=== PATIENT | female | born 1985 | race Caucasian/White ===

== ENCOUNTER 2022-04-11 12:56 | Outpatient (CLI) | payer MEDICAID, SELFPAY ==
--- NOTE | 2022-04-11 13:00 | CRLHL7_ITS ---
For Patients: As a result of the Century Cures Act, medical imaging exams and procedure reports are released immediately into your electronic medical record. You may view this report before your referring provider. If you have questions, please contact your health care provider. INDICATION: COVID DURING TECHNIQUE: Real time eldridge scale imaging of the fetus was performed. COMPARISON: 03/12/2022 FINDINGS: Sonographic imaging demonstrates a single living intrauterine gestation. Fetus demonstrates a regular cardiac rate of 136 beats per minute. Fetus has a vertex position. The placenta lies anteriorly without evidence of placenta previa. Amniotic fluid volume appears normal and there is a single deepest pocket of 7.4 cm. The estimated weight is 2115gm which lies at the 61st %. On the prior OB ultrasound dated 03/12/2022 the estimated weight was at the 91st percentile. BPD 93rd percentile. HC 60th percentile. AC 76th percentile. FL 20th percentile. The fetus was active and demonstrated normal breathing movements. There was normal flexion and extension of the trunk and extremities. IMPRESSION: Normal biophysical profile score 8/8. Sonographic gestational age 33 weeks 3 days and sonographic due date 05/27/2022. Sonographic age 1 week ahead of the clinical age. Estimated weight 61st percentile. Abdominal circumference 76th percentile. Dictated by Vern Keenan MD @ 04/11/2022 2:10:54 PM (Electronically Signed)
== END 2022-04-11 12:57 | disposition home or self-care (01) ==
LOC: US 12:57
PROVIDERS: Visit Provider Advanced Practice Midwife
DX: O98.513 Other viral diseases complicating pregnancy, third trimester (principal); U07.1 COVID-19; Z3A.33 33 weeks gestation of pregnancy
CPT/HCPCS: 76816; 76819

== ENCOUNTER 2023-07-31 12:47 | Outpatient (CLI) | payer MEDICAID, SELFPAY ==
--- NOTE | 2023-07-31 13:00 | CRLHL7_ITS ---
For Patients: As a result of the Cures Act, medical imaging exams and procedure reports are released immediately into your electronic medical record. You may view this report before your referring provider. If you have questions, please contact your health care provider. INDICATION: First trimester scan, establish dates. COMPARISON: None. TECHNIQUE: Real-time eldridge-scale imaging of the pelvis was performed. FINDINGS: Sonographic imaging demonstrates a single living intrauterine gestation. The embryo demonstrates a regular cardiac rate measuring 154 beats per minute. The embryo`s crown-rump length measurement of 6.7 cm corresponds to a gestational age of 13 weeks 0 days with a sonographic due date of 02/05/2024. There is a normal-appearing yolk sac. There are no gross abnormalities noted within the embryo at this early state of development. The gestational sac has a normal appearance. There is a lower uterine segment perigestational hemorrhage measuring 1.2 x 1.5 x 3.0 cm. The amount of fluid within the sac appears appropriate for gestational age. The cervix is closed. The myometrium appears normal. The ovaries are of normal size. Corpus luteal cyst left ovary. There are no suspicious fluid collections noted in the cul-de-sac. IMPRESSION: Single living intrauterine with sonographic gestational age 13 weeks 0 days and sonographic due date 02/05/2024. Lower uterine segment subchorionic hemorrhage measuring 1.2 x 1.5 x 3.0 cm. Dictated by Vern Keenan MD @ 08/01/2023 3:59:39 PM (Electronically Signed)
== END 2023-07-31 12:48 | disposition home or self-care (01) ==
LOC: US 12:48
PROVIDERS: Visit Provider Advanced Practice Midwife
DX: Z34.91 Encounter for supervision of normal pregnancy, unspecified, first trimester (principal); O20.9 Hemorrhage in early pregnancy, unspecified; Z3A.13 13 weeks gestation of pregnancy
CPT/HCPCS: 76801; 84443; 86703; 86706; 86803; 86850; 86900; 86901; 87086; 87340

== ENCOUNTER 2023-07-31 14:36 | Outpatient (CLI) | payer MEDICAID, SELFPAY | END 2023-07-31 14:37 | disposition home or self-care (01) | PROVIDERS: Visit Provider Advanced Practice Midwife | DX: Z34.91 Encounter for supervision of normal pregnancy, unspecified, first trimester (principal); Z3A.13 13 weeks gestation of pregnancy | CPT/HCPCS: 84443; 86592; 86703; 86704; 86706; 86762; 86787; 86803; 86850; 86900; 86901; 87086; 87340 ==

== ENCOUNTER 2023-08-01 10:18 | Outpatient (CLI) | payer MEDICAID, SELFPAY | END 2023-08-01 10:19 | disposition home or self-care (01) | LOC: NFLDREF 10:22 | PROVIDERS: Visit Provider Advanced Practice Midwife | DX: Z34.91 Encounter for supervision of normal pregnancy, unspecified, first trimester (principal); O20.9 Hemorrhage in early pregnancy, unspecified; Z3A.13 13 weeks gestation of pregnancy | CPT/HCPCS: 80048; 87086 ==

== ENCOUNTER 2023-08-28 11:54 | Outpatient (CLI) | payer MEDICAID, SELFPAY | END 2023-08-28 11:55 | disposition home or self-care (01) | LOC: NFLDREF 11:55 | PROVIDERS: Visit Provider Advanced Practice Midwife | DX: Z34.92 Encounter for supervision of normal pregnancy, unspecified, second trimester (principal); Z3A.17 17 weeks gestation of pregnancy | CPT/HCPCS: 81511 ==

== ENCOUNTER 2023-09-22 11:22 | Emergency (ER) | payer MEDICAID, SELFPAY ==
[2023-09-22] VITALS (15 sets, daily range): BP systolic 110–114; BP diastolic 66–71; PULSE 92–116; RESP 18; TEMP 37.1; O2SAT 95–98; BMI 21.3
--- NOTE | 2023-09-22 11:54 | CRLHL7_ITS ---
For Patients: As a result of the Cures Act, medical imaging exams and procedure reports are released immediately into your electronic medical record. You may view this report before your referring provider. If you have questions, please contact your health care provider. HISTORY: Left lower quadrant pain. labor. Twenty weeks . TECHNIQUE: Transabdominal obstetric ultrasound. COMPARISON: 07/31/2023. FINDINGS: Living single intrauterine gestation with calculated gestational age based on ultrasound measurements of 20 weeks, 5 days. This compares to a clinical age of 20 weeks, 4 days and is concordant. The estimated weight is 389 g which is at the 67th percentile. The heart rate is 167 beats per minute. Measurements: Biparietal diameter 4.8 cm 20 weeks, 3 days by. Head circumference 17.8 cm 20 weeks, 2 days. Abdominal circumference 16.7 cm 21 weeks, 5 days. Femur length 3.3 cm 20 weeks, 1 day. Posterior placenta which appears unremarkable. Closed cervix of normal length. Normal quantity amniotic fluid. Left ovary unremarkable. Right ovary not seen. IMPRESSION: 1. Living single intrauterine gestation with calculated gestational age based ultrasound measurements of 20 weeks, 5 days. This compares to a clinical age of 20 weeks, 4 days and is concordant. 2. Estimated weight places this fetus at the 67th percentile. 3. No complications are seen. Dictated by Jorgito Wolfe MD @ 09/22/2023 1:13:18 PM Dictated by: Jorgito Wolfe MD @ 09/22/2023 13:13:28 (Electronically Signed)
--- NOTE | 2023-09-22 11:55 | ED.GENADULT ---
HPI - General Adult General Date Seen: 09/22/23 Chief complaint: Nausea/Vomiting Stated complaint: vomiting, shaking, 19 wks Time Seen by Provider: 09/22/23 11:24 Source: patient Mode of arrival: ambulatory Limitations: no limitations History of Present Illness HPI narrative: Patient is a 38-year-old female who is 19 weeks A2 presenting to emergency department for multiple complaints. She states starting suddenly around 10:00 she developed chills, left pelvic pain, headache, fatigue, severe nausea. She states she has vomited about 4 or 5 times. She does have hyperemesis gravidarum in has a midline in. She does daily IV fluids and q.12 hours Zofran. Last took Zofran at 02:00 States the midline insertion site is painful right now. Dressing was changed 2 days ago. She says her headache feels like a pressure in her head. Denies having headaches like this before but she was recently started on Imitrex for migraine. The pain in her left pelvic region is tender to palpation in is constant. While intervening the patient's she looks to be very uncomfortable and is keeping her eyes closed with the dark room. Denies having symptoms like this with her previous pregnancies. Still feels chilled at this time but denies any objective fevers at home. Related Data Home Medications Medication Instructions Recorded Confirmed acetaminophen 500 mg tablet 500 mg PO .PRN PRN 04/11/22 09/22/23 ibuprofen 125 mg-acetaminophen 250 1 tab PO Q8H PRN 07/31/23 07/31/23 mg tablet (Advil Dual Action) 09/22/23 Previous Rx's Medication Instructions Recorded metoclopramide HCl 10 mg tablet 10 mg PO Q6H PRN headache #30 tabs 07/31/23 (Reglan) ondansetron 8 mg disintegrating 8 mg PO Q12H PRN nausea and 07/31/23 tablet vomiting #60 tabs thiamine HCl (vitamin B1) 100 mg 100 mg PO TID #90 tabs 08/08/23 tablet sumatriptan succinate 50 mg tablet 50 mg PO Q2-4H PRN migraine 09/20/23 headache #10 tabs Allergies Allergy/AdvReac Type Severity Reaction Status Date / Time No Known Allergies Allergy Unverified 07/31/23 14:19 Review of Systems Status of ROS: Reports: 10 or more systems reviewed and unremarkable except as noted in History and below PFSH PFSH Medical History Normal spontaneous vaginal delivery ?O80 - Encounter for full-term uncomplicated delivery (ICD-10) Nausea and vomiting during ?O21.9 - Vomiting of , unspecified (ICD-10) Family History Father High blood pressure Mother Thyroid disease Social History Narrative: SOCIAL? ? Education: associates?degree? 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 ? 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 ? Pets: no? ? Abuse: Denies past Safe at home with current partner ? ? ? Special Diet: Denies? ? Ok with a blood transfusion: yes? ? Culture or shinto beliefs: denies? RISK FACTORS? ? Exercise Times/wk: walking twice a week? ? Depression/Anxiety: denies? ? Previous Treatments NA ? Therapy NA VALERIO: 4 PHQ 9: 7? ? Seat Belt Use: Routinely ? Smoking: Denies past/present? ? Alcohol/day: Denies while , 4 drinks a month ? Caffeine: 2 pops day? ? Drug Use: Denies past/present? What is your current living situation?: I presently have a place to live Problems where you live: no known problems In the past 12 months, utilities in danger of being shut off: no In past 12 months, lack of transportation kept you from medical appts, meetings, work, or getting things needed for daily living: no In the past 12 mos, have been you worried that your food would run out before you had money to buy more?: never true In the past 12 mos, the food you bought just didn't last and you didn't have money to buy more?: never true Smoking Status: Never smoker How often do you have a drink containing alcohol: never AUDIT-C Alcohol total score: 0 Non-prescribed substance use: denies use How often does anyone, including family, friends and others, physically hurt you: never How often does anyone, including family, friends and others, insult or talk down to you: never How often does anyone, including family, friends and others, threaten you with harm: never How often does anyone, including family, friends and others, scream or curse at you: never Little interest or pleasure in doing things: not at all Feeling down, depressed, or hopeless: not at all Exam Narrative: Exam Narrative: Const: Well-nourished, Well-developed, in moderate distress Eyes: PERRL, no conjunctival injection, and symmetrical lids HENT: Atraumatic external nose and ears. Moist mucous membranes. Neck: Symmetric, trachea midline, No thyromegaly. CVS: RRR, No murmurs or gallops. Peripheral pulses 2+ and equal in all extremities RESP: Unlabored respiratory effort. Clear to auscultation bilaterally. GI: Tenderness of left lower quadrant but most tenderness seems to be in the left pelvic region, Nondistended, No rebound or guarding. MSK:Extremities w/o deformity, Normal Active ROM Skin: Warm, Dry. No rashes or lesions. Neuro: Normal Muscle tone, No focal neurological deficits. Psych: Awake, Alert, & Oriented x3. Appropriate mood and affect. Const: Vital Signs, click to edit/add: Vital Signs - 24 hr 09/22/23 11:35 09/22/23 12:47 09/22/23 13:00 Temperature 98.8 F Pulse Rate 109 H 100 Pulse Rate [Pulse Oximeter] 116 H Respiratory Rate 18 Blood Pressure Blood Pressure [Le ft Upper Arm] 113/71 Pulse Oximetry 96 97 [facility] 09/22/23 13:02 09/22/23 13:15 09/22/23 13:30 Temperature Pulse Rate 99 103 H 108 H Pulse Rate [Pulse Oximeter] Respiratory Rate Blood Pressure 114/66 Blood Pressure [Le ft Upper Arm] Pulse Oximetry 98 97 96 Oxygen Delivery Mo thod 09/22/23 13:31 09/22/23 13:45 09/22/23 14:00 Temperature Pulse Rate 106 H 101 H 95 Pulse Rate [Pulse Oximeter] Respiratory Rate Blood Pressure 110/66 Blood Pressure [Le ft Upper Arm] Pulse Oximetry 96 96 96 [facility] 09/22/23 14:02 09/22/23 14:15 Temperature Pulse Rate 97 104 H Pulse Rate [Pulse Oximeter] Respiratory Rate Blood Pressure 113/66 Blood Pressure [Le ft Upper Arm] Pulse Oximetry 97 97 Oxygen Delivery Me thod Course Vital Signs Vital signs: Initial Vital Signs Temperature 98.8 F 09/22/23 11:35 Temperature Source Temporal Artery Scan 09/22/23 11:35 Pulse Rate 116 H 09/22/23 11:35 Respiratory Rate 18 09/22/23 11:35 Blood Pressure 113/71 09/22/23 11:35 Blood Pressure Mean 85 09/22/23 11:35 Blood Pressure Position Sitting 09/22/23 11:35 Pulse Oximetry 96 09/22/23 11:35 Oxygen Delivery Method Room Air 09/22/23 11:35 Vital Signs Temperature 98.8 F 09/22/23 11:35 Pulse Rate 116 H 09/22/23 11:35 Respiratory Rate 18 09/22/23 11:35 Blood Pressure 113/71 09/22/23 11:35 Pulse Oximetry 96 09/22/23 11:35 Oxygen Delivery Method Room Air 09/22/23 11:35 Temperature 98.8 F 09/22/23 11:35 Pulse Rate 104 H 09/22/23 14:15 Respiratory Rate 18 09/22/23 11:35 Blood Pressure 113/66 09/22/23 14:02 Pulse Oximetry 97 09/22/23 14:15 Oxygen Delivery Method Room Air 09/22/23 11:35 Medications Administered Medications: Generic Name Dose Route Start Last Admin Trade Name Freq PRN Reason Stop Dose Admin Lactated Ringer's 1,000 mls @ 1,000 mls/hr 09/22/23 14:13 09/22/23 14:21 Lactated Ringers 1000 Ml IV 09/22/23 15:12 1,000 mls/hr .Q1H ONE Administration Discontinued Medications Generic Name Dose Route Start Last Admin Trade Name Freq PRN Reason Stop Dose Admin Diphenhydramine HCl 25 mg 09/22/23 11:52 09/22/23 12:55 Diphenhydramine 50 Mg/Ml Inj IVP 09/22/23 11:53 25 mg ONCE ONE Administration Lactated Ringer's 1,000 mls @ 1,000 mls/hr 09/22/23 11:52 09/22/23 13:43 Lactated Ringers 1000 Ml IV 09/22/23 12:51 Infused .Q1H ONE Infusion Morphine Sulfate 4 mg 09/22/23 13:05 09/22/23 13:20 Morphine 4 Mg/Ml Inj IVP 09/22/23 13:06 4 mg ONCE ONE Administration Ondansetron HCl 4 mg 09/22/23 11:52 09/22/23 12:55 Ondansetron 2 Mg/Ml Inj IVP 09/22/23 11:53 4 mg ONCE ONE Administration Potassium Bicarbonate 25 meq 09/22/23 13:57 09/22/23 14:09 Potassium Bicarb 25 Meq Effervescent Tab PO 09/22/23 13:58 25 meq ONCE ONE Administration Sumatriptan Succinate 50 mg 09/22/23 13:47 09/22/23 14:09 Sumatriptan Succinate 50 Mg Tablet PO 09/22/23 13:48 50 mg ONCE ONE Administration Medical Decision Making MDM Narrative Medical decision making narrative: Patient is a 38-year-old female presenting to emergency department for multiple complaints. She has been do a hyperemesis gravidarum does home IV fluids and Zofran through her midline. The midline does have some tenderness at the site but I do not see any erythema and there is no increased warmth at the area. Does not appear to be infective. Tenderness in the abdomen is more left pelvic region near the ovary had a ultrasound was ordered to better evaluate this. Symptoms could also be from electrolyte abnormalities, viral syndrome. Since unlikely to be diverticulitis considering her age. She has been having normal bowel movements does not appear to be SBO or constipation. There not want to CT scan on this patient in do not believe it is necessary. Patient given migraine cocktail. COVID/flu/RSV test is negative Patient's CBC returned showing no concerning abnormalities. Lactate within normal limits. CMP shows a sodium 132 with a potassium of 3.1 bolus of nausea concerning. Magnesium was 1.3. We did replenish her potassium. After the medication her nausea was improving but still having abdominal pain and her headache. Is was several hours now since her home sumatriptan so another dose was given. Her urinalysis returned showing +4 ketones showing signs of dehydration any 2nd bag of lactated Ringer's was given. 1 dose of morphine was given for her pain. Ultrasound returned showing no concerning abnormalities. Normal appearing ovaries. Normal appearing intrauterine . After all these medications she is feeling better and feels like she can go home. She should follow up with Ob outpatient if symptoms persist tomorrow. She is agreeable to this plan. Lab Data Labs: Lab Results 09/22/23 09/22/23 Range/Units 12:17 13:43 WBC 6.66 (4.50-11.00) K/uL RBC 3.19 L (4.00-5.20) m/uL Hgb 10.2 L (12.0-16.0) gm/dL Hct 29.6 L (33.0-51.0) % MCV 93 (80-100) fL MCH 32 (26-34) pg MCHC 35 (32-36) gm/dL RDW Coeff of David 12.7 (11.5-15.5) % Plt Count 130 L (140-440) K/uL Neut % (Auto) 94.1 H (42.0-72.0) % Lymph % (Auto) 3.2 L (20-44) % [place] % (Auto) 1.8 (0.0-11.0) % Eos % (Auto) 0.2 (0.0-7.0) % Baso % (Auto) 0.2 (0.0-3.0) % Neut # (Auto) 6.30 (1.7-7.0) K/uL Lymph # (Auto) 0.20 L (0.90-2.90) K/uL [place] # (Auto) 0.10 (0.00-0.90) K/UL Eos # (Auto) 0.01 (0.00-0.50) K/uL Baso # (Auto) 0.01 (0.00-0.30) K/uL Abs Immat Gran (auto) 0.03 (0.00-0.30) K/uL Imm/Tot Granulo (auto) 0.5 % Sodium 132 L (135-149) mmol/L Potassium 3.1 L (3.6-5.1) mmol/L Chloride 105 (96-114) mmol/L Carbon Dioxide 18 L (20-32) mmol/L Anion Gap 9 (7-15) mEq/L BUN 5 (5-24) mg/dL Creatinine 0.4 L (0.5-1.5) mg/dL Estimated Creat Clear 171.59 Estimated GFR 130 ml/min Glucose 72 (60-115) mg/dL Lactate 0.7 (0.5-1.9) mmol/L Calcium 8.6 (8.4-10.6) mg/dL Magnesium 1.3 L (1.5-2.6) mg/dL Total Bilirubin 1.1 (0.1-1.5) mg/dL AST 24 (12-35) U/L ALT 16 (4-35) U/L Alkaline Phosphatase 52 (40-150) U/L Total Protein 6.2 (6.0-8.3) g/dL Albumin 3.6 (3.3-5.0) g/dL Lipase 35 (23-300) U/L Urine Color Yellow (Yellow) Urine Appearance Clear (Clear) Urine pH 8.0 (5.0-8.5) Ur Specific [place] 1.020 (1.000-1.030) Urine Protein Negative (Negative) Urine Glucose (UA) Negative (Negative) Urine Ketones 4+ A (Negative) Urine Blood Negative (Negative) Urine Nitrite Negative (Negative) Urine Bilirubin Negative (Negative) Urine Urobilinogen 0.2 (0.2-1.0) Ur Leukocyte Esterase Negative (Negative) Urine RBC 0-2 (0-2) Urine WBC 0-2 (0-5) Ur Squamous Epith Cells Few (None-Few) Urine Bacteria Few A (None) SARS-CoV-2 (PCR) Negative SARS-CoV-2 (Negative) Influenza Type A (PCR) Negative PCR FLU A (Negative) Influenza Type B (PCR) Negative PCR FLU B (Negative) RSV (PCR) Negative PCR RSV (Negative) Imaging Data OB ultrasound: Radiologist's impression: 1. Living single intrauterine gestation with calculated gestational age based ultrasound measurements of 20 weeks, 5 days. This compares to a clinical age of 20 weeks, 4 days and is concordant. 2. Estimated weight places this fetus at the 67th percentile. 3. No complications are seen. Dictated by Jorgito Wolfe MD @ 09/22/2023 1:13:18 PM Discharge Plan Discharge Clinical Impression: Migraine, Hyperemesis, Abdominal pain Patient Disposition: Home, Self-Care Condition: Improved Instructions: Migraine Headache (ED) Additional Instructions: Follow-up with OB tomorrow if symptoms persist. Continue to do your IV Zofran and fluids infusions at home. Return to the emergency department for new or worsening symptoms. Prescriptions: No Action acetaminophen 500 mg tablet 500 mg PO .PRN PRN Rx Instructions: NO MORE THAN 4000 MG/DAY ibuprofen-acetaminophen [Advil Dual Action] 125-250 mg tablet 1 tab PO Q8H PRN ondansetron 8 mg tablet,disintegrating 8 mg PO Q12H PRN (Reason: nausea and vomiting) Qty: 60 2RF metoclopramide HCl [Reglan] 10 mg tablet 10 mg PO Q6H PRN (Reason: headache) Qty: 30 2RF thiamine HCl (vitamin B1) 100 mg tablet 100 mg PO TID Qty: 90 3RF Rx Instructions: Take 3 times a day as you are able. sumatriptan succinate 50 mg tablet 50 mg PO Q2-4H PRN (Reason: migraine headache) Qty: 10 0RF Rx Instructions: do not exceed 4 doses per 24 hrs Follow Up/Referrals: Provider,Not a Local [Primary Care Provider] - Stand Alone Forms: [employer] Info Instructions
[2023-09-22 12:23] LABS: Lactate* 0.7 mmol/L (0.5-1.9)
[2023-09-22 12:25] LABS: Basophils Absolute Auto 0.01 K/uL (0.00-0.30); Basophils Percent Auto 0.2 % (0.0-3.0); Eosinophils Absolute Auto 0.01 K/uL (0.00-0.50); Eosinophils Percent Auto 0.2 % (0.0-7.0); Hematocrit 29.6 % (33.0-51.0); Hemoglobin* 10.2 gm/dL (12.0-16.0); Immature Granulocytes Abs Auto 0.03 K/uL (0.00-0.30); Immature Granulocytes Pct Auto 0.5 %; Lymphocytes Percent Auto 3.2 % (20-44); Mean Corpuscular HGB Conc 35 gm/dL (32-36); Mean Corpuscular Hemoglobin 32 pg (26-34); Mean Corpuscular Volume 93 fL (80-100); Monocytes Percent Auto 1.8 % (0.0-11.0); Neutrophils Percent Auto 94.1 % (42.0-72.0); Platelet Count* 130 K/uL (140-440); RDW Coefficient of Variation % 12.7 % (11.5-15.5); Red Blood Count 3.19 m/uL (4.00-5.20); White Blood Count* 6.66 K/uL (4.50-11.00)
[2023-09-22 12:30] LABS: Slide Review Reflex No
[2023-09-22 12:39] LABS: Albumin* 3.6 g/dL (3.3-5.0)
[2023-09-22 12:40] LABS: Chloride* 105 mmol/L (96-114); Potassium* 3.1 mmol/L (3.6-5.1); Sodium* 132 mmol/L (135-149)
[2023-09-22 12:42] LABS: Alkaline Phosphatase* 52 U/L (40-150); Anion Gap 9 mEq/L (7-15); Aspartate Amino Transferase* 24 U/L (12-35); Bilirubin Total* 1.1 mg/dL (0.1-1.5); Blood Urea Nitrogen* 5 mg/dL (5-24); Carbon Dioxide* 18 mmol/L (20-32); Creatinine* 0.4 mg/dL (0.5-1.5); Est. Creatinine Clearance* 171.59; Estimated Glomerular Filt Rate 130 ml/min; Total Protein* 6.2 g/dL (6.0-8.3)
[2023-09-22 12:43] LABS: Alanine Aminotransferase* 16 U/L (4-35); Calcium* 8.6 mg/dL (8.4-10.6); Glucose* 72 mg/dL (60-115); Lipase* 35 U/L (23-300)
[2023-09-22 12:44] LABS: Magnesium* 1.3 mg/dL (1.5-2.6)
[2023-09-22] MEDS: ONDANSETRON 2 MG/ML inj 4 MG IVP (12:55)
[2023-09-22] MEDS: diphenhydrAMINE 50 MG/ML inj 25 MG IVP (12:55)
[2023-09-22] MEDS: LACTATED RINGERS 1000 ML 1,000 ML IV ×2 (12:55→14:21)
[2023-09-22 13:05] LABS: PCR FLU A Negative PCR FLU A (Negative); PCR FLU B Negative PCR FLU B (Negative); PCR RSV Negative PCR RSV (Negative)
[2023-09-22 13:08] LABS: SARS PCR* Negative SARS-CoV-2 (Negative)
[2023-09-22] MEDS: MORPHINE 4 MG/ML INJ IVP (13:20)
[2023-09-22 13:49] LABS: Appearance Urine Clear (Clear); Bilirubin Urine Negative (Negative); Blood Urine Negative (Negative); Color Urine Yellow (Yellow); Glucose Urine Negative (Negative); Ketones Urine 4+ (Negative); Leukocyte Esterase Urine Negative (Negative); Nitrite Urine Negative (Negative); Protein Urine Negative (Negative); Urobilinogen Urine 0.2 (0.2-1.0)
[2023-09-22 14:02] LABS: Bacteria Urine Few; RBC Urine 0-2 (0-2); Squamous Epithelial Cell Urine Few (None-Few); WBC Urine 0-2 (0-5)
[2023-09-22] MEDS: SUMAtriptan succinate 50 MG TABLET PO (14:09)
[2023-09-22] MEDS: POTASSIUM BICARB 25 MEQ EFFERVESCENT TAB PO (14:09)
== END 2023-09-22 14:57 | disposition home or self-care (01) ==
PROVIDERS: Emergency Provider Student in an Organized Health Care Education/Training Program
DX: G43.909 Migraine, unspecified, not intractable, without status migrainosus (principal); O21.0 Mild hyperemesis gravidarum; Z3A.20 20 weeks gestation of pregnancy
CPT/HCPCS: 36415; 76815; 80053; 81001; 83605; 83690; 83735; 85025; 87040; 87086; 87631; 93976; 95992; 96374; 96375; 99283; 99284; A9270; J1200; J2270; J2405; J7120

== ENCOUNTER 2023-09-23 13:57 | Outpatient (CLI) | payer MEDICAID, SELFPAY | END 2023-09-23 13:58 | disposition home or self-care (01) | PROVIDERS: Visit Provider Advanced Practice Midwife | DX: O09.522 Supervision of elderly multigravida, second trimester (principal); Z3A.20 20 weeks gestation of pregnancy | CPT/HCPCS: 80051; 80053 ==

== ENCOUNTER 2023-09-24 12:10 | Outpatient (CLI) | payer MEDICAID, SELFPAY ==
--- NOTE | 2023-09-24 12:15 | CRLHL7_ITS ---
For Patients: As a result of the Cures Act, medical imaging exams and procedure reports are released immediately into your electronic medical record. You may view this report before your referring provider. If you have questions, please contact your health care provider. OB ULTRASOUND CLINICAL HISTORY: History of pre-term labor. Cervical length check. CARMITA by LMP: 02/04/2023. GA: 20 weeks 6 days. FINDINGS: CERVIX: Visualized. Measurement: 4.6 cm. POSITIONING: Miguel breech. AMNIOTIC FLUID: 3.6 cm. PLACENTA: Technique: Transabdominal. PLACENTA POSITION: Posterior. DOPPLER: heart rate: 141 bpm. IMPRESSION: Cervix is closed and measures 4.6 cm. Single live intrauterine gestation. Samantha Ma M.D. Diagnostic/Breast Radiologist [email or web address] [email or web address]/Dictated by: Samantha Ma MD @ 09/26/2023 11:57:00 AM (Electronically Signed)
== END 2023-09-24 12:11 | disposition home or self-care (01) ==
LOC: US 12:10
PROVIDERS: Visit Provider Advanced Practice Midwife
DX: O09.212 Supervision of pregnancy with history of pre-term labor, second trimester (principal); Z3A.20 20 weeks gestation of pregnancy
CPT/HCPCS: 76816; 76817; J3411; J7030

== ENCOUNTER 2023-10-09 13:06 | Outpatient (CLI) | payer MEDICAID, SELFPAY ==
--- NOTE | 2023-10-09 13:00 | CRLHL7_ITS ---
For Patients: As a result of the Century Cures Act, medical imaging exams and procedure reports are released immediately into your electronic medical record. You may view this report before your referring provider. If you have questions, please contact your health care provider. INDICATION: History of labor, check cervix COMPARISON: 09/22/2023 TECHNIQUE: Real-time eldridge-scale imaging of the pelvis was performed with transabdominal and transvaginal technique. FINDINGS: heart rate 163 beats per minute. Normal amniotic fluid with single deepest pocket 4.4 cm. Posterior placenta. Breech position. Cervix closed measuring 4.5 cm with transvaginal imaging. IMPRESSION: Closed cervix measuring 4.5 cm. No funneling. Dictated by Vern Keenan MD @ 10/10/2023 11:44:03 AM (Electronically Signed)
== END 2023-10-09 13:07 | disposition home or self-care (01) ==
LOC: US 13:08
PROVIDERS: Visit Provider Advanced Practice Midwife
DX: O09.219 Supervision of pregnancy with history of pre-term labor, unspecified trimester (principal)
CPT/HCPCS: 76816; 76817

== ENCOUNTER 2023-10-10 12:03 | Outpatient (CLI) | payer MEDICAID, SELFPAY ==
[2023-10-10 12:15] VITALS: BP 111/86; PULSE 111; RESP 18; O2SAT 99
--- NOTE | 2023-10-10 12:15 | CRLHL7_ITS ---
For Patients: As a result of the Century Cures Act, medical imaging exams and procedure reports are released immediately into your electronic medical record. You may view this report before your referring provider. If you have questions, please contact your health care provider. Indication: PICC line Technique: Grayscale sonogram images of the left basilic vein and internal jugular vein IMPRESSION: Ultrasound guidance for left arm PICC line placement. Dictated by Vern Keenan MD @ 10/10/2023 1:26:54 PM (Electronically Signed)
--- NOTE | 2023-10-10 12:15 | CRLHL7_ITS ---
For Patients: As a result of the Century Cures Act, medical imaging exams and procedure reports are released immediately into your electronic medical record. You may view this report before your referring provider. If you have questions, please contact your health care provider. INDICATION: PICC line placement. TECHNIQUE: Chest 1 view. COMPARISON: None. FINDINGS: Cardiovascular and mediastinum: Heart size and vasculature are normal in caliber and appearance. Left upper extremity PICC tip projects over the lower SVC. Lungs and pleural spaces: Lungs are clear. No sign of infiltrate or mass. No sign of pleural effusion. No pneumothorax. Bones and soft tissues: No significant findings. IMPRESSION: 1. Satisfactory position of left upper extremity PICC with its tip projecting over the lower SVC. 2. No acute pulmonary process. Dictated by Israel Delacruz MD @ 10/10/2023 1:34:08 PM (Electronically Signed)
== END 2023-10-10 13:42 | disposition home or self-care (01) ==
PROVIDERS: Visit Provider Advanced Practice Midwife
DX: R11.10 Vomiting, unspecified (principal); Z45.2 Encounter for adjustment and management of vascular access device
CPT/HCPCS: 36573

== ENCOUNTER 2023-11-13 09:08 | Outpatient (CLI) | payer MEDICAID, SELFPAY ==
--- NOTE | 2023-11-13 09:15 | CRLHL7_ITS ---
For Patients: As a result of the Cures Act, medical imaging exams and procedure reports are released immediately into your electronic medical record. You may view this report before your referring provider. If you have questions, please contact your health care provider. INDICATION: Vomiting COMPARISON: 10/09/2023 TECHNIQUE: Real time eldridge scale imaging of the fetus was performed. FINDINGS: Sonographic imaging demonstrates a single living intrauterine gestation. Fetus demonstrates a regular cardiac rate of 167 beats per minute. Fetus has a vertex position. The placenta lies posteriorly. Amniotic fluid volume appears normal and there is a single deepest vertical pocket: 5.2 cm. The estimated weight is 1247gm which lies at the 59th %. On the prior OB ultrasound exam dated 09/22/2023 the estimated weight was at the 67th%. BPD 15th percentile. HC 14th percentile. AC 78th percentile. FL 38th percentile. The HC/AC ratio measures 1.02 range (1.02-1.21). IMPRESSION: Sonographic gestational age 28 weeks 1 day and sonographic due date of 02/04/2024. Good correlation with dates. Normal interval growth. Estimated weight 59th percentile. Abdominal circumference 78th percentile. Dictated by Vern Keenan MD @ 11/13/2023 10:11:51 AM (Electronically Signed)
== END 2023-11-13 09:09 | disposition home or self-care (01) ==
LOC: US 09:09
PROVIDERS: Visit Provider Advanced Practice Midwife
DX: O21.2 Late vomiting of pregnancy (principal); Z3A.28 28 weeks gestation of pregnancy
CPT/HCPCS: 76816; 86850; J2791

== ENCOUNTER 2023-11-13 10:36 | Outpatient (CLI) | payer MEDICAID, SELFPAY ==
--- OUTSIDE RECORDS SUMMARY | 2023-11-13 10:50 | XMS_ITS | Encounter Summary ---
Author Name Unknown Organization [facility] Address [address] [place] [address] Care Team Providers Care Wood Grinder Name Role Phone Bettye Macias MD Primary Care Provider Encounter Details Date Type Department Care Team (Latest Contact Info) Description 09/10/2023 Travel Social History Tobacco Use Types Packs/Day Years Used Date Smoking Tobacco: Never Smokeless Tobacco: Never Alcohol Use Standard Drinks/Week Comments Yes 0 (1 standard drink = 0.6 oz pur e alcohol) occassional PHQ-2 Answer Date Recorded PHQ-2 Score 0 10/18/2018 [place] Depression Scale Answer Date Recorded Last EPDS Total Score Not on file 04/21/2022 The thought of harming myself has occurred to me . Never 04/21/2022 Adolescent Education Answer Date Record ed Getting School Help Needed Not on file 07/24 Estimated Date of Delivery Comme nts Yes 02/05/2024 Based on Ultraso und Sex and Gender Information Value Date Recorded Sex Assigned at Not on file Gender Identity Not on file Sexual Orientation Not on file documented as of this encounter Plan of Treatment Not on file documented as of this encounter Visit Diagnoses Not on filedocumented in this encounter Care Teams Wood Grinder Relationship Specialty Start Date End Date Bettye Macias MD [address] [place] [id number] PCP - General Family Practice 07/15/15 documented as of this encounter
--- OUTSIDE RECORDS SUMMARY | 2023-11-13 10:50 | XMS_ITS | Clinical Summary ---
Author Name Unknown Organization [place] Address [facility] [place] [address] Care Team Providers Care Flattening Machine Operator Name Role Phone Bettye Macias MD Primary Care Provider Allergies No known active allergies Medications Medication Sig Dispensed Refills Start Date End Date Status isometheptene-aceta minophen-dichloralp henazone (MIDRIN) 65-325-100 MG per capsuleIndications: Migraine without aura, intractable, with status migrainosus Take 1 capsule by mouth 4 times daily as needed for migraine 30 capsule 3 07/18/2015 Active ondansetron (ZOFRAN) 4 MG tabletIndications:M igraine without aura, intractable, with status migrainosus,Nausea Take 1-2 tablets (4-8 mg) by mouth every 8 hours as needed for nausea 18 tablet 5 07/18/2015 Active Additional Information Patient taking differently: 8 mgOral EVERY 8 HOURS PRN, nausea, Reported on 04/21/2022 Vit-Fe Fumarate-FA ( MULTIVITAMIN W/IRON) 27-0.8 MG tablet Take 1 tablet by mouth daily 0 Active ibuprofen (ADVIL/MOTRIN) 800 MG tabletIndications:S VD (spontaneous vaginal delivery) Take 1 tablet (800 mg) by mouth every 6 hours as needed for other (cramping) 30 tablet 0 04/21/2022 Active Active Problems Patient Care Coordination No te Formatting of this note migh t be different from the original. [email or web address] Problem Noted Date Diagnosed Date Indication for care in labor or delivery 022 (spontaneous vaginal delivery) 2022 Acute right-sided low back pain with right-sided sciatica 05/03/2016 CARDIOVASCULAR SCREENING; LDL GOAL LESS THAN 160 07/15/2015 Presence of intrauterine contraceptive device Overview: Mirena placed 07/15/2015 Migraine without aura, intractable, with status migrainosus Overview: twice weekly x 2 years - in HS on amitriptyline=didn't work; verapamil=didn't work Estimated Date of Delivery Comme nts Yes 02/05/2024 Based on Ultraso und Encounters Date Type Department Care Team Description 09/10/2023 10:00 AM SALES REPRESENTATIVE HEALTH INSURANCE Office Visit [facility] Maternal [facility] [place] [address] [place] [phone] Isabella Horn APRN CNM Yamamura, Yasuko, MD Multigravida of advanced maternal age in second trimester (Primary Dx); History of delivery, currently in second trimester 09/10/2023 8:53 AM SALES REPRESENTATIVE HEALTH INSURANCE - 09/10/2023 11:59 PM SALES REPRESENTATIVE HEALTH INSURANCE Hospital Encounter [facility] Medicine [place] [address] [place] [phone] Isabella Horn APRN CNM Yamamura, Yasuko, MD related condition, antepartum Discharge Disposition: Home or Self Care 09/10/2023 8:45 AM SALES REPRESENTATIVE HEALTH INSURANCE Office Visit [facility] Medicine [place] [address] [facility] [address] [place] [phone] Isabella Horn APRN CNM Yamamura, Yasuko, MD Daykin, Emily C, GC Multigravida of advanced maternal age in second trimester (Primary Dx); related condition, antepartum 09/10/2023 Travel 09/02/[address] [facility] Medicine [facility] [address] [place] [phone] Lalita Roberts, TRACE Ultrasound (L2-AMA); Genetic Counseling (GC-AMA) 08/30/2023 Transcribe Orders [facility] [place] [address] [place] [address] Isabella Horn APRN CNM related condition, antepartum (Primary Dx) 08/28/2023 Medical Correspondence [facility] [address] [place] [address] Outside, Provider from Last 3 Months Immunizations Name Administration Dates Next Due MMR 04/21/2022 TDAP (Adacel,Boostrix) 04/18/2007 Family History Medical History Relation Comments Thyroid Disease Mother Breast Cancer Paternal Grandmother Relation Status Comments Brother Alive Father Alive Mother Alive Paternal Grandmother Alive Social History Tobacco Use Types Packs/Day Years Used Date Smoking Tobacco: Never Smokeless Tobacco: Never Alcohol Use Standard Drinks/Week Comments Yes 0 (1 standard drink = 0.6 oz pur e alcohol) occassional PHQ-2 Answer Date Recorded PHQ-2 Score 0 10/18/2018 [place] Depression Scale Answer Date Recorded Last EPDS [...] on file Sexual Orientation Not on file Last Filed Vital Signs Vital Sign Reading Time Taken Comments Blood Pressure 114/73 04/21/2022 8:17 AM CDT Pulse 67 04/21/2022 8:17 AM CDT Temperature 36.8 ??C (98.3 ??F) 04/21/2022 8:17 AM CD T Respiratory Rate 16 04/21/2022 8:17 AM CDT Oxygen Saturation 100% 06/02/2016 8:51 AM CDT Inhaled Oxygen Concentration - - Weight 59 kg (130 lb) 06/02/2016 8:51 AM CDT Height 167.6 cm (5' 6) 04/23/2016 1:49 PM CDT Body Mass Index 20.98 04/23/2016 1:49 PM CDT Plan of Treatment Health Maintenance Due Date Last Done Comments ADVANCE CARE PLANNING 1985 ANNUAL REVIEW OF HM ORDERS 1985 HEPATITIS B IMMUNIZATION (1 of 3 - 3-dose series) 1985 YEARLY PREVENTIVE VISIT 1985 COVID-19 Vaccine (#1) 1985 IPV IMMUNIZATION (5 of 5 - 5-dose series) 1989 03/07/1986, 03/07/1986, 1985, Additional history exists HIV SCREENING 2000 HEPATITIS C SCREENING 2003 HPV IMMUNIZATION (2 - 3-dose series) 05/16/2007 04/18/2007, 04/18/2007 EYE EXAM 11/16/2016 11/16/2015, 11/16/2015 INFLUENZA VACCINE (#1) 2023 MATERNAL SCREENING DISCUSSION 07/10/2023 PAP 08/15/2023 08/15/2020, 1106/2020, 07/15/2015, Additional history exists PHQ-2 (once per calendar year) 2023 06/02/2016, 07/18/2015 OBGCT (OB) 10/16/2023 GROUP B STREP SCREENING 01/08/2024 2022 DTAP/TDAP/TD IMMUNIZATION (8 - Td or Tdap) 10/25/2024 10/25/2014, 04/18/2007, 05/31/1998, Additional history exists GLUCOSE 11/06/2026 11/06/2023, 10/08, 10/23/2023, Additional history exists MIGRAINE ACTION PLAN Completed 07/18/2015 MENINGITIS IMMUNIZATION Aged Out No l onger eligible based on patient's age to complete this topic Pneumococcal Vaccine: Pediatrics (0 to 5 Years) and At-Risk Patients (6 to 64 Years) Aged Out No longer eligible based on patient's age to complete this topic RSV MONOCLONAL ANTIBODY Aged Out No l onger eligible based on patient's age to complete this topic RSV VACCINE ( & 60+) (No Doses Required) Completed Procedures Procedure Name Priority Date/Time Associated Diagnosis Comments MAGNESIUM Routine 11/06/2023 8:10 AM SALES REPRESENTATIVE HEALTH INSURANCE Hyperemesis gravidarum with metabolic disturbance COMPREHENSIVE METABOLIC PANEL Routine 11/06/2023 8:10 AM SALES REPRESENTATIVE HEALTH INSURANCE Hyperemesis gravidarum with metabolic disturbance EXTRA PURPLE TOP EDTA (LAB USE ONLY) Routine 10/30/2023 8:50 AM SALES REPRESENTATIVE HEALTH INSURANCE Mild hyperemesis gravidarum MAGNESIUM Routine 10/30/2023 8:50 AM SALES REPRESENTATIVE HEALTH INSURANCE Mild hyperemesis gravidarum COMPREHENSIVE METABOLIC PANEL Routine 10/30/2023 8:50 AM SALES REPRESENTATIVE HEALTH INSURANCE Mild hyperemesis gravidarum MAGNESIUM Routine 10/23/2023 8:45 AM SALES REPRESENTATIVE HEALTH INSURANCE Mild hyperemesis gravidarum COMPREHENSIVE METABOLIC PANEL Routine 10/23/2023 8:45 AM SALES REPRESENTATIVE HEALTH INSURANCE Mild hyperemesis gravidarum MAGNESIUM Routine 10/16/2023 9:30 AM SALES REPRESENTATIVE HEALTH INSURANCE Mild hyperemesis gravidarum COMPREHENSIVE METABOLIC PANEL Routine 10/16/2023 9:30 AM SALES REPRESENTATIVE HEALTH INSURANCE Mild hyperemesis gravidarum MAGNESIUM Routine 10/09/2023 8:15 AM SALES REPRESENTATIVE HEALTH INSURANCE Mild hyperemesis gravidarum COMPREHENSIVE METABOLIC PANEL Routine 10/09/2023 8:15 AM SALES REPRESENTATIVE HEALTH INSURANCE Mild hyperemesis gravidarum COMPREHENSIVE METABOLIC PANEL Routine 10/02/2023 8:03 AM SALES REPRESENTATIVE HEALTH INSURANCE Mild hyperemesis gravidarum MAGNESIUM Routine 10/02/2023 8:03 AM SALES REPRESENTATIVE HEALTH INSURANCE Mild hyperemesis gravidarum [facility] COMPREHENSIVE SINGLE Routine 09/10/2023 10:16 AM SALES REPRESENTATIVE HEALTH INSURANCE related condition, antepartum from Last 3 Months Results * (ABNORMAL) Magnesium (11/06/2023 8:10 AM SALES REPRESENTATIVE HEALTH INSURANCE) Only the most recent of6 resultswithin the time period is included. Magnesium 1.6(L) 1.7 - 2.3 mg/dL 11/06/2023 11:10 AM [facility] Blood BLOOD SPECIMEN / Unknown Client Draw / Unknown 11/06/2023 8:10 AM SALES REPRESENTATIVE HEALTH INSURANCE 11/06/2023 10:39 AM SALES REPRESENTATIVE HEALTH INSURANCE Isabella Horn APRN CNM LAB - BLOOD [facility] [address] Lab (1st floor, no room number) [place] [address], [facility] [phone] * (ABNORMAL) Comprehensive metabolic panel (11/06/2023 8:10 AM SALES REPRESENTATIVE HEALTH INSURANCE) Only the most recent of6 resultswithin the time period is included. Sodium 136 135 - 145 mmol/L 11/06/2023 11:10 AM [facility] Comment:Reference intervals for this test were updated on 07/02/2023 to more accurately reflect our healthy population. There may be differences in the flagging of prior results with similar values performed with this method. Interpretation of those prior results can be made in the context of the updated reference intervals. Potassium 3.8 3.4 - 5.3 mmol/L 11/06/2023 11:10 AM [facility] Carbon Dioxide (CO2) 23 22 - 29 mmol/L 11/06/2023 11:10 AM [facility] Anion Gap 9 7 - 15 mmol/L 11/06/2023 11:10 AM [facility] Urea Nitrogen 4.7(L) 6.0 - 20.0 mg/dL 11/06/2023 11:10 AM [facility] Creatinine 0.40(L) 0.51 - 0.95 mg/dL 11/06/2023 11:10 AM [facility] GFR Estimate >90 >60 mL/min/1. 73m2 11/06/2023 11:10 AM [facility] Calcium 8.3(L) 8.6 - 10.0 mg/dL 11/06/2023 11:10 AM [facility] Chloride 104 98 - 107 mmol/L 11/06/2023 11:10 AM [facility] Glucose 116(H) 70 - 99 mg/dL 11/06/2023 11:10 AM SALES REPRESENTATIVE HEALTH INSURANCE [facility] Alkaline Phosphatase 55 40 - 150 U/L 11/06/2023 11:10 AM SALES REPRESENTATIVE HEALTH INSURANCE [facility] Comment:Reference intervals for this test were updated on 08/20/2023 to more accurately reflect our healthy population. There may be differences in the flagging of prior results with similar values performed with this method. Interpretation of those prior results can be made in the context of the updated reference intervals. AST 15 0 - 45 U/L 11/06/2023 11:10 AM SALES REPRESENTATIVE HEALTH INSURANCE [facility] Comment:Reference intervals for this test were updated on 03/18/2023 to more accurately reflect our healthy population. There may be differences in the flagging of prior results with similar values performed with this method. Interpretation of those prior results can be made in the context of the updated reference intervals. ALT 8 0 - 50 U/L 11/06/2023 11:10 AM SALES REPRESENTATIVE HEALTH INSURANCE [facility] Comment:Reference intervals for this test were updated on 03/18/2023 to more accurately reflect our healthy population. There may be differences in the flagging of prior results with similar values performed with this method. Interpretation of those prior results can be made in the context of the updated reference intervals. Protein Total 6.1(L) 6.4 - 8.3 g/dL 11/06/2023 11:10 AM SALES REPRESENTATIVE HEALTH INSURANCE [facility] Albumin 3.8 3.5 - 5.2 g/dL 11/06/2023 11:10 AM SALES REPRESENTATIVE HEALTH INSURANCE [facility] Bilirubin Total 0.2 <=1.2 mg/dL 11/06/2023 11:10 AM SALES REPRESENTATIVE HEALTH INSURANCE [facility] Blood BLOOD SPECIMEN / Unknown Client Draw / Unknown 11/06/2023 8:10 AM SALES REPRESENTATIVE HEALTH INSURANCE 11/06/2023 10:39 AM SALES REPRESENTATIVE HEALTH INSURANCE Isabella Horn APRN CNM LAB - BLOOD [facility] [address] [facility] (1st floor, no room number) [place] [address], [facility] [phone] * Extra Purple Top EDTA (LAB USE ONLY) (10/30/2023 8:50 AM SALES REPRESENTATIVE HEALTH INSURANCE) [facility] Specimen [facility] 10/30/2023 1:16 PM SALES REPRESENTATIVE HEALTH INSURANCE LABORATORY Blood CENTRAL VENOUS CATHETER / Unknown Client Draw / Unknown 10/30/2023 8:50 AM SALES REPRESENTATIVE HEALTH INSURANCE 10/30/2023 12:15 PM SALES REPRESENTATIVE HEALTH INSURANCE Isabella Horn APRN CNM LAB - BLOOD [facility] [address] [facility] Lab (1st floor, no room number) [place] [address], [facility] [phone] * [facility] US Comprehensive Single (09/10/2023 10:16 AM SALES REPRESENTATIVE HEALTH INSURANCE) Anatomical Region Laterality Modality Ultrasound 09/10/2023 9:35 AM SALES REPRESENTATIVE HEALTH INSURANCE Impressions 09/10/2023 11:17 AM SALES REPRESENTATIVE HEALTH INSURANCE IMPRESSION ----- 1) Carrasco intrauterine at 18w 6d gestational age. 2) None of the anomalies commonly detected by ultrasound were evident in the detailed anatomic survey described above. 3) Growth parameters and estimated weight were consistent with an appropriate for gestation age pattern of growth. 4) The amniotic fluid volume appeared normal. 5) Transvaginal ultrasound was performed in conjunction with a transabdominal ultrasound to better visualize the cervix. Cervical length appears to be within normal limits for gestational age. Narrative 09/10/2023 11:17 AM SALES REPRESENTATIVE HEALTH INSURANCE ?Comprehensive ----- Pat. Name: DORI BOCANEGRA ? Study Date: ??09/10/2023 9:35am Pat. NO: ??[id number] ?Referring ??MD: ISABELLA HORN Site: ??[place] ? Subgrade Tester: [facility] : ??1985 ?Age: ?? 38 ----- INDICATION ----- Advanced Maternal Age--Multigravida, low risk NIPT. History of PTD METHOD ----- Transabdominal and transvaginal ultrasound approaches were used. (Transvaginal ultrasound examination was required to adequately complete the exam.). View: Sufficient ----- Carrasco . Number of fetuses: 1 DATING ----- ? Date ?Details ?Gest. age ?CARMITA LMP ?05/23/2023 ?Cycle: LMP date uncertain ? 15 w + 5 d ? 02/27/2024 Prior assessment ? 07/31/2023 ? GA: 13 w + 0 d ? 18 w + 6 d ? 02/05/2024 U/S ? 09/10/2023 ? based upon AC, BPD, Femur, HC ?18 w + 5 d ? 02/06/2024 Assigned dating ?Dating performed on 09/10/2023, based on the prior assessment (on 07/31/2023) ?18 w + 6 d ? 02/05/2024 GENERAL EVALUATION ----- Cardiac activity present. FHR 157 bpm. movements present. Presentation Variable. Placenta No Previa, > 2 cm from internal os, Posterior. Umbilical cord 3 vessel cord. Amniotic fluid Amount of AF: normal. MVP 5.3 cm. BIOMETRY ----- Main Biometry: BPD ?40.7 ?mm ? 18w 2d ?Ceferino CLARKE ?56.9 ?mm ? 18w 5d ?Nicolaides ?155.8 ?mm ?18w 4d ?Hadlock Cerebellum tr ?19.1 ? mm ?18w 4d ?Nicolaides AC ?139.2 ?mm ?19w 2d ?62% ?Hadlock Femur ?29.0 ? mm ?18w 6d ?Hadlock Humerus ?28.0 ?mm ? 19w 0d ?Moncho Weight Calculation: EFW ? 271 ? g ? 56% ?Hadlock EFW (lb,oz) ? 0 lb 10 ? oz EFW by ?Hadlock ([id number]) Head / Face / Neck Biometry: List Of First Job Ideas ? 6.3 ? mm CM ?4.2 ? mm Nasal bone ? 5.8 ? mm Nuchal fold ? 4.9 ? mm ANATOMY ----- The following structures appear normal: Head / Neck ? Cranium. Head size. Head shape. Lateral ventricles. Choroid plexus. Midline falx. Cavum septi pellucidi. Cerebellum. Cisterna magna. ? Parenchyma. Thalami. Vermis. ? Neck. Nuchal fold. Face ? Lips. Profile. Nose. Maxilla. Mandible. Orbits. Lens. Heart / Thorax ?4-chamber view. RVOT view. LVOT view. Situs. Aortic arch view. Bicaval view. Ductal arch view. Superior vena cava. Inferior vena cava. 3-vessel ? view. 0-vkmjfy-nunfzrs view. Cardiac position. Cardiac size. Cardiac rhythm. ? Right lung. Left lung. Diaphragm. Abdomen ? Abdominal wall. Cord insertion. Stomach. Kidneys. Bladder. Liver. Bowel. Genitals. Spine ?Cervical spine. Thoracic spine. Lumbar spine. Sacral spine. Extremities / Skeleton ?Right arm. Right hand. Left arm. Left hand. Right leg. Right foot. Left leg. Left foot. Gender: female. MATERNAL STRUCTURES ----- Cervix ?Visualized ? Appearance: Appears Closed ? Approach - Transvaginal: Cervical length 35.0 mm Right Ovary ?Visualized Left Ovary ?Visualized RECOMMENDATION ----- We discussed the findings on today's ultrasound with the patient. The limitations of ultrasound and cell-free DNA screening and option of genetic amniocentesis were reviewed with the patient. We discussed the availability of amniocentesis for the precise diagnosis of chromosomal abnormalities including the associated procedure-related risk of loss of 1/300 to 1/500. The patient declined all further aneuploidy screening and diagnostic tests. Given history of spontaneous , recommend cervical length assessment with TV US in 2 and 4 weeks. If CL is < 30 mm, please refer Dori back to [facility] for further evaluation. If CL < 25 mm, recommend calling us to discuss short interval follow up and interventions of either cerclage vs vaginal progesterone. If CL > 30 mm in 4 weeks, can discontinue CL surveillance at that time. Due to ongoing N&V of , recommend repeat assessment of growth at 26-28 weeks and then every 4-6 weeks thereafter. I anticipate that these follow up US will be scheduled in [place], or can be scheduled here at [facility]'s OB provider's discretion. Return to primary provider for continued care. Thank you for the opportunity to participate in the care of this patient. If you have questions regarding today's evaluation or if we can be of further service, please contact the [facility]. anomalies may be present but not detected I spent a total of 20 minutes on the date of this encounter including preparing to see the patient (reviewing medical records/tests), in direct qtlj-jo-ftiq contact with the patient during her visit with the majority spent counseling and discussing the plan of care and documenting the visit in the electronic medical record. Please see note for details. Procedure Note Obdulio Leonard MD - 09/10/2023 Comprehensive ----- Pat. Name: DORI BOCANEGRA Study Date: 09/10/2023 9:35am Pat. NO: [id number] Referring MD: ISABELLA HORN Site: [facility] Subgrade Tester: [facility] : 1985 Age: 38 ----- INDICATION ----- Advanced Maternal Age--Multigravida, low risk NIPT. History of PTD METHOD ----- Transabdominal and transvaginal ultrasound approaches were used.(Transvaginal ultrasound examination was required to adequately completethe exam.). View: Sufficient ----- Carrasco . Number of fetuses: 1 DATING ----- DateDetailsGest. age CARMITA LMP 05/23/2023ycle: LMP date [id number] w + 5 d 02/27/2024 Prior assessment 07/31/2023 GA: 13 w +0 d18 w + 6 d 02/05/2024 U/S 09/10/2023ased upon AC, BPD, Femur, HC18 w + 5 d 02/06/2024 Assigned dating Dating performed on 09/10/2023, based onthe prior assessment (on 07/31/2023) 18 w + 6 02/05/2024 GENERAL EVALUATION ----- Cardiac activity present. FHR 157 bpm. movements present. Presentation Variable. Placenta No Previa, > 2 cm from internal os, Posterior. Umbilical cord 3 vessel cord. Amniotic fluid Amount of AF: normal. MVP 5.3 cm. BIOMETRY ----- Main Biometry: BPD 40.7 mm18w 2d Hadlock OFD 56.9 mm18w 5d Nicolaides HC 155.8 mm18w 4d Hadlock Cerebellum tr 19.1 mm18w 4d Nicolaides AC 139.2 mm19w 2d 62% Hadlock Femur 29.0 mm18w 6d Hadlock Humerus 28.0 mm19w 0d Moncho Weight Calculation: EFW 271 g56% Hadlock EFW (lb,oz) 0 lb 10 oz EFW by Hadlock ([id number]) Head / Face / Neck Biometry: List Of First [employer] Ideas 6.3 mm CM 4.2 mm Nasal bone 5.8 mm Nuchal fold 4.9 mm ANATOMY ----- The following structures appear normal: Head / Neck Cranium. Head size. Head shape.Lateral ventricles. Choroid plexus. Midline falx. Cavum septi pellucidi.Cerebellum. Cisterna magna. Parenchyma. Thalami. Vermis. Neck. Nuchal fold. Face Lips. Profile. Nose. Maxilla.Mandible. Orbits. Lens. Heart / Thorax 4-chamber view. RVOT view. LVOT view.Situs. Aortic arch view. Bicaval view. Ductal arch view. Superior venacava. Inferior vena cava. 3-vessel view. 9-ianjhx-mtindyd view.Cardiac position. Cardiac size. Cardiac rhythm. Right lung. Left lung.Diaphragm. Abdomen Abdominal wall. Cord insertion.Stomach. Kidneys. Bladder. Liver. Bowel. Genitals. Spine Cervical spine. Thoracic spine.Lumbar spine. Sacral spine. Extremities / Skeleton Right arm. Right hand. Left arm. Lefthand. Right leg. Right foot. Left leg. Left foot. Gender: female. MATERNAL STRUCTURES ----- Cervix Visualized Appearance: Appears Closed Approach - Transvaginal:Cervical length 35.0 mm Right Ovary Visualized Left Ovary Visualized RECOMMENDATION ----- We discussed the findings on today's ultrasound with the patient. The limitations of ultrasound and cell-free DNA screening and option ofgenetic amniocentesis were reviewed with the patient. We discussed theavailability of amniocentesis for the precise diagnosis of chromosomal abnormalitiesincluding the associated procedure-related risk of loss of 1/300to 1/500. The patient declined all further aneuploidy screening and diagnostic tests. Given history of spontaneous , recommend cervical lengthassessment with TV US in 2 and 4 weeks. If CL is < 30 mm, please referMary back to [facility] for further evaluation. If CL < 25 mm, recommend calling us to discuss shortinterval follow up and interventions of either cerclage vs vaginalprogesterone. If CL > 30 mm in 4 weeks, can discontinue CL surveillance at that time. Due to ongoing N&V ofpregnancy, recommend repeat assessment of growth at 26-28 weeks and then every 4-6 weeks thereafter. I anticipate that these follow up US will be scheduledin [place], or can be scheduled here at [facility] OB provider'sdiscretion. Return to primary provider for continued care. Thank you for the opportunity to participate in the care of this patient.If you have questions regarding today's evaluation or if we can be offurther service, please contact the [facility] Medicine Center. anomalies may be present but not detected I spent a total of 20 minutes on the date of this encounter includingpreparing to see the patient (reviewing medical records/tests), in yowhxfmdfy-oh-xuzx contact with the patient during her visit with the majority spent counseling and discussingthe plan of care and documenting the visit in the electronic medicalrecord. Please see note for details. IMPRESSION ----- 1) Carrasco intrauterine at 18w 6d gestational age. 2) None of the anomalies commonly detected by ultrasound were evident inthe detailed anatomic survey described above. 3) Growth parameters and estimated weight were consistent with anappropriate for gestation age pattern of growth. 4) The amniotic fluid volume appeared normal. 5) Transvaginal ultrasound was performed in conjunction with atransabdominal ultrasound to better visualize the cervix. Cervical lengthappears to be within normal limits for gestational age. Isabella Horn APRN, CNM [facility] ORDERAB LES from Last 3 Months Advance Directives For more information, please contact: [phone] Latest Code Status on File Code Status Date Activated Date Inactivated Comments Full Code 04/21/2022 12:52 PM 04/21/2022 4:44 PM All basic and advanced life-sustaining interventions are performed as appropriate Question Answer Comments Code status determined by: Discussion with patient/ legal decision maker Code Status History Code Status Date Activated Date Inactivated Comments Full Code 2022 2:21 PM 2022 6:21 PM All b asic and advanced life-sustaining interventions are performed as appropriate Question Answer Comments Code status determined by: Discussion with patient/ legal decision maker Care Teams Flattening Machine Operator Relationship Specialty Start Date End Date Bettye Macias MD [address] [place] [id number] PCP - General Family Practice 07/15/15
--- OUTSIDE RECORDS SUMMARY | 2023-11-13 10:50 | XMS_ITS | Encounter Summary ---
Author Name Unknown Organization [place] Address [facility] [place] [address] Care Team Providers Care Wealth Management Manager Name Role Phone Bettye Macias MD Primary Care Provider Reason for Visit * Reason Comments Ultrasound L2-AMA Genetic Counseling GC-AMA Encounter Details Date Type Department Care Team (Late st Contact Info) Description 09/02/2023 PRE VISIT [facility] [place] [address] [place] [address] Lalita Roberts RN Ultrasound (L2-AMA); Genetic Counseling (GC-AMA) Social History Tobacco Use Types Packs/Day Years Used Date Smoking Tobacco: Never Smokeless Tobacco: Never Alcohol Use Standard Drinks/Week Comments Yes 0 (1 standard drink = 0.6 oz pur e alcohol) occassional PHQ-2 Answer Date Recorded PHQ-2 Score 0 10/18/2018 [place] Depression Scale Answer Date Recorded Last EPDS [...] on filedocumented in this encounter Care Teams Wealth Management Manager Relationship Specialty Start Date End Date Bettye Macias MD [address] [place] [address] PCP - General Family Practice 07/15/15 documented as of this encounter
--- OUTSIDE RECORDS SUMMARY | 2023-11-13 10:50 | XMS_ITS | Encounter Summary ---
Author Name Unknown Organization [facility] Address [address] [place] [address] Care Team Providers Care Pneumatic Tube Fitter Name Role Phone Bettye Macias MD Primary Care Provider Reason for Visit * Reason Comments Genetic Counseling * Consultation (Routine: Next available opening) - Pending Review Specialty Diagnoses / Procedures Referred By Contamado t Referred To Contact Diagnoses related condition, antepartum Charline Horn APRN [facility] [address] [place] [address] Referral ID Status Reason Start Date Expiration Date V isits Requested Visits Authorized [id number] Pending Review 08/30/2023 08/29/2024 1 1 Encounter Details Date Type Department Care Team (Late st Contact Info) Description 09/10/2023 8:45 AM COLLAR CUTTER Office Visit [facility] [place] [address] [place] [phone] Charline Horn APRN [facility] [address] [place] [address] Obdulio Leonard MD [address] [address] Yumiko Velasquez GC [address] [address] Multigravida of advanced maternal age in second trimester (Primary Dx); related condition, antepartum Social History Tobacco Use Types Packs/Day Years Used Date Smoking Tobacco: Never Smokeless Tobacco: Never Alcohol Use Standard Drinks/Week Comments Yes 0 (1 standard drink = 0.6 oz pur e alcohol) occassional PHQ-2 Answer Date Recorded PHQ-2 Score 0 10/18/2018 [place] Depression Scale Answer Date Recorded Last EPDS [...] on file documented as of this encounter Progress Notes * Yumiko Velasquez, - 09/10/2023 8:45 AM CST [facility] Genetic Counseling Consult Patient: Dori Bocanegra Date of : 1985 Date of Service: 09/10/23 Dori was seen at the [facility] for genetic consultation. The indication for genetic counseling is advanced maternal age. The patient was unaccompanied to this visit. The session was conducted in Russian. IMPRESSION/ PLAN 1. Dori had genetic screening earlier in this . Her non-invasive test was screen negative or low risk for screened conditions (Down syndrome, trisomy 18, trisomy 13, and sex chromosome aneuploidies). 2. During today's [employer] visit, Dori had a genetic counseling session only. Screening and diagnostic testing was discussed and declined. 3. Dori had a level II comprehensive anatomy ultrasound today. Please see the ultrasound report forfurther details. 4. Further recommendations include continued care with Dori's primary OB. HISTORY /Parity: No bleeding, illnesses, or exposures of concern were reported at today's visit. Dori's history is significant for: Two first trimester miscarriages One at 37w0d This was originally a twin , Dori experienced a loss of one twin in the first trimester One at 33w4d CURRENT Current Age: [age] year old Age at Delivery: 38 year old CARMITA: 02/05/2024, by Ultrasound Gestational Age: 18w6d This is a single gestation. This was conceived spontaneously. MEDICAL HISTORY Dori???s reported medical history is not expected to impact management or risks to development. Of note, Dori does have a personal history of migraines with aura. She saw a neurologist when she was 15 but has not followed with neurology. She is considering being seen by neurology after this . FAMILY HISTORY A three-generation family history was obtained today and is scanned under the Media tab in [employer] The family history was reported by Dori. The following significant findings were reported today: Dori and her maternal grandmother have both had three or more miscarriages. We discussed how recurrent loss can sometimes be due to an underlying cause. Common causes of recurrent loss include maternal factors, endocrine disorders, immune disorders, and chromosomal and single gene disorders. Without further information regarding an underlying cause for these relative's recurrent loss, an accurate risk assessment cannot be provided and the possibility of a familial chromosomal rearrangement cannot be ruled out. Dori's mother has a history of hyperthyroidism and one of Dori's maternal aunts has a history of hypothyroidism. We reviewed the family history of thyroid concerns. These conditions, and other autoimmune disorders, are multifactorial in nature, resulting from both genetic and non-genetic factors. Once an autoimmune disease is present in a family, other relatives may be at increased risk to develop the same disease or a different autoimmune disease. Presymptomatic and testing are not available for autoimmune disorders. Dori's partner, Ryan, is 38 years old and is healthy. Ryan's sister has a history of breast cancer diagnosed at 34. Ryan's maternal grandmother had ahistory of breast cancer diagnosed in her 40s. There is no other cancer history on Ryan's maternal side. Ryan's father has a history of prostate cancer diagnosed at 50. There is no other cancer history on Ryan's paternal side. We discussed the family history of cancer. Cancer most often occurs by chance, however some families seem to develop cancer more frequently than expected. Families with an inherited risk for cancer tend to have multiple relatives in multiple generations being diagnosed with cancer at younger ages. Genetic counseling is available for cancer syndromes. Cancer family history, even without genetic testing, can change cancer screening recommendations for family members and aid in insurance coverage for access to them as well. The most informative individuals to complete cancer genetic counseling and genetic testing are those with a personal history of cancer or those closely related to the affected individuals. We discussed that, as a part of Ryan's sister's care, she should be offered genetic testing for hereditary cancer predisposition syndromes. We reviewed that if the family wants moreinformation they can contact the [facility] Cancer Risk Management Program ( ).Physicians can also make referrals at [email or web address] or, if within the [facility] system, through [facility] referral for Cancer Risk Mgmt/Cancer Genetic Counseling. Ryan's father had one brother pass away at 8 years old due to heart concerns. Ryan's mother wasa twin, her twin sister at a few months of age. We discussed that, without additional details relating to these two young deaths, it is very difficult to provide an accurate risk assessment. An underlying genetic etiology cannot be ruled out for either of these relatives. Otherwise, the reported family history is unremarkable for multiple miscarriages, stillbirths, defects, intellectual disabilities, autism spectrum disorder, developmental delays, cancer diagnosed under 50, known genetic conditions, and consanguinity. RISK ASSESSMENT FOR CHROMOSOME CONDITIONS We explained that the risk for chromosome abnormalities increases with maternal age. We discussed specific features of common chromosome abnormalities, including Down syndrome, trisomy 13, trisomy 18, and sex chromosome trisomies. Dori had genetic screening earlier in this . Her non-invasive test was screen negative or low risk for screened conditions. Non-invasive screening (NIPS) results Maternal plasma cell-free DNA testing Screens for trisomy 21, trisomy 13, trisomy 18, and sex chromosome aneuploidy First trimester ultrasound with nuchal translucency and nasal bone assessment was not performed in this , to our knowledge. Dori had a [facility] [id number] NIPS earlier in ; we reviewed the results today, which are low risk. The NIPS did include sex chromosome aneuploidies and the result was low risk. The predicted sex is XX, which is typically female. Given the accuracy of this test, these results greatly decrease the chance for certain chromosome abnormalities Maternal serum AFP only to screen for open neural tube defects (after 15 weeks) was ordered by Dori's primary OB. Results not available to review. GENETIC TESTING OPTIONS FOR CHROMOSOMAL CONDITIONS Genetic testing during a includes screening and diagnostic procedures. Screening tests are non-invasive which means no risk to the and includes ultrasounds and blood work. The benefits and limitations of screening were reviewed. Screening tests provide a risk assessment (chance) specific to the for certain chromosome abnormalities but cannot definitively diagnose or exclude a chromosome abnormality. Follow-up genetic counseling and consideration of diagnostic testing is recommended with any abnormal screening result. Diagnostic testing during a is more certain and can test for more conditions. However, the tests do have a risk of miscarriage that requires careful consideration. These tests can detect chromosome ab normalities with greater than 99% certainty. Results can be compromised by maternal cell contamination or mosaicism and are limited by the resolution of current genetic testing technology. There is no screening or diagnostic test that detects all forms of defects or intellectual disability. We discussed the following ultrasound options: Comprehensive level II ultrasound ( Anatomy Ultrasound) Ultrasound done between 18-20 weeks gestation Screens for major defects and markers for aneuploidy (like trisomy 21 and trisomy 18) Includes looking at the fetus/baby's growth, heart, organs (stomach, kidneys), placenta, and amniotic fluid We discussed the following diagnostic options: Amniocentesis Invasive diagnostic procedure done after 15 weeks gestation The procedure collects a small sample of amniotic fluid for the purpose of chromosomal testing and/or other genetic testing Diagnostic result; more than 99% sensitivity for chromosome abnormalities Testing for AFP in the amniotic fluid can test for open neural tube defects CARRIER SCREENING Expanded carrier screening is available to screen for autosomal recessive conditions and X-linked conditions in a large list of genes. Autosomal recessive conditions happen when a mutation has been inherited from the egg and sperm and include conditions like cystic fibrosis, thalassemia, hearing loss, spinal muscular atrophy, and more. X-linked conditions happen when a mutation has been inheritedfrom the egg and include conditions like fragile X syndrome. screening was also reviewed. About [place] Screening The patient declined the carrier screening options. They are aware the option will remain, and theycan contact us if they would like to pursue screening. We discussed the following: Carrier screening does not test the but gives a risk assessment for the and future pregnancies to have the condition There are different size panels or list of conditions for carrier screening Some conditions cause health problems for carriers Carrier screening does not test for all genetic and health conditions or risk factors There are limitations to current technology and results may be updated at a later date If an individual is a carrier, family members could be as well. Sharing results from carrier screening with relatives could be helpful. It was a pleasure to be involved with Dori???s care. [id number] time of the meeting was 30 minutes. Yumiko Velasquez MS, [facility] Office: [phone] [employer]: [phone] [facility] Patient seen, evaluated and discussed with the Genetic Counseling Telecom Specialist. I have verified the content of the note, which accurately reflects my assessment of the patient and the plan of care. Supervising Genetic Counselor Paige Blancas MS, [facility] Licensed Genetic Counselor [email or web address] Office: [phone] Pager [phone] [employer]: [phone] [place] CUTTER documented in this encounter Plan of Treatment Not on file documented as of this encounter Visit Diagnoses Diagnosis Multigravida of advanced maternal age in second trimester- Primary related condition, antepartum documented in this encounter Care Teams Pneumatic Tube Fitter Relationship Specialty Start Date End Date Bettye Macias MD [address] [place] [id number] PCP - General Family Practice 07/15/15 documented as of this encounter
--- OUTSIDE RECORDS SUMMARY | 2023-11-13 10:50 | XMS_ITS | Referral Summary ---
Author Name Unknown Organization [place] Address [address] [place] [address] Care Team Providers Care Remote Sensing Scientist Name Role Phone Bettye Macias MD Primary Care Provider Encounters Date Type Department Care Team Description 09/10/2023 Travel 09/10/2023 10:00 AM PERSONAL INJURY PARALEGAL Office Visit [facility] Maternal Medicine [facility] [address] [place] [address] Isabella Horn APRN CNM Yamamura, Yasuko, MD Multigravida of advanced maternal age in second trimester (Primary Dx); History of delivery, currently in second trimester 09/10/2023 8:53 AM PERSONAL INJURY PARALEGAL - 09/10/2023 11:59 PM PERSONAL INJURY PARALEGAL Hospital Encounter [facility] Maternal Medicine [facility] [address] [place] [address] Isabella Horn APRN CNM Yamamura, Yasuko, MD related condition, antepartum Discharge Disposition: Home or Self Care 09/10/2023 8:45 AM PERSONAL INJURY PARALEGAL Office Visit [facility] [address] [place] [address] Isabella Horn APRN CNM Yamamura, Yasuko, MD Daykin, Emily C, GC Multigravida of advanced maternal age in second trimester (Primary Dx); related condition, antepartum 09/02/2023 PRE VISIT [facility] M[facility] Medicine [facility] [place] [address] [place] [address] Lalita Roberts, TRACE Ultrasound (L2-AMA); Genetic Counseling (GC-AMA) 08/30/2023 Transcribe Orders [facility] [address] [place] [address] Isabella Horn APRN CNM related condition, antepartum (Primary Dx) 08/28/2023 Medical Correspondence [facility] Info Mgmt [facility] [address] [place] [address] Outside, Provider from Last 3 Months Allergies No known active allergies Medications Medication [...] 07/15/2015 Presence of intrauterine contraceptive device Overview: Sravan placed 07/15/2015 Migraine without aura, intractable, with status migrainosus Overview: twice weekly x 2 years - in HS on amitriptyline=didn't work; verapamil=didn't work Estimated Date of Delivery Comme nts Yes 02/05/2024 Based on Ultraso und Immunizations Name Administration Dates Next Due MMR 04/21/2022 TDAP (Adacel,Boostrix) 04/18/2007 Social History Tobacco Use Types Packs/Day Years Used Date Smoking Tobacco: Never Smokeless Tobacco: Never Alcohol Use Standard Drinks/Week Comments Yes 0 (1 standard drink = 0.6 oz pur e alcohol) occassional PHQ-2 Answer Date Recorded PHQ-2 Score 0 10/18/2018 [place] Depression Scale Answer Date Recorded Last EPDS [...] 04/23/2016 1:49 PM CDT Plan of Treatment Not on file Procedures Procedure Name Priority Date/Time Associated Diagnosis Comments MAGNESIUM Routine 11/06/2023 8:10 AM PERSONAL INJURY PARALEGAL Hyperemesis gravidarum with metabolic disturbance COMPREHENSIVE METABOLIC PANEL Routine 11/06/2023 8:10 AM PERSONAL INJURY PARALEGAL Hyperemesis gravidarum with metabolic disturbance EXTRA PURPLE TOP EDTA (LAB USE ONLY) Routine 10/30/2023 8:50 AM PERSONAL INJURY PARALEGAL Mild hyperemesis gravidarum MAGNESIUM Routine 10/30/2023 8:50 AM PERSONAL INJURY PARALEGAL Mild hyperemesis gravidarum COMPREHENSIVE METABOLIC PANEL Routine 10/30/2023 8:50 AM PERSONAL INJURY PARALEGAL Mild hyperemesis gravidarum MAGNESIUM Routine 10/23/2023 8:45 AM PERSONAL INJURY PARALEGAL Mild hyperemesis gravidarum COMPREHENSIVE METABOLIC PANEL Routine 10/23/2023 8:45 AM PERSONAL INJURY PARALEGAL Mild hyperemesis gravidarum MAGNESIUM Routine 10/16/2023 9:30 AM PERSONAL INJURY PARALEGAL Mild hyperemesis gravidarum COMPREHENSIVE METABOLIC PANEL Routine 10/16/2023 9:30 AM PERSONAL INJURY PARALEGAL Mild hyperemesis gravidarum MAGNESIUM Routine 10/09/2023 8:15 AM PERSONAL INJURY PARALEGAL Mild hyperemesis gravidarum COMPREHENSIVE METABOLIC PANEL Routine 10/09/2023 8:15 AM PERSONAL INJURY PARALEGAL Mild hyperemesis gravidarum COMPREHENSIVE METABOLIC PANEL Routine 10/02/2023 8:03 AM PERSONAL INJURY PARALEGAL Mild hyperemesis gravidarum MAGNESIUM Routine 10/02/2023 8:03 AM PERSONAL INJURY PARALEGAL Mild hyperemesis gravidarum [facility] COMPREHENSIVE SINGLE Routine 09/10/2023 10:16 AM PERSONAL INJURY PARALEGAL related condition, antepartum from Last 3 Months Results * (ABNORMAL) Magnesium (11/06/2023 8:10 AM PERSONAL INJURY PARALEGAL) Only the most recent of6 resultswithin the time period is included. Magnesium 1.6(L) 1.7 - 2.3 mg/dL 11/06/2023 11:10 AM [facility] Blood BLOOD SPECIMEN / Unknown Client Draw / Unknown 11/06/2023 8:10 AM PERSONAL INJURY PARALEGAL 11/06/2023 10:39 AM PERSONAL INJURY PARALEGAL Isabella Horn ELENA CNM LAB - BLOOD ORDERA BLES [facility] Acute Care Lab [address] [facility] (1st floor, no room number) [place] [address], [facility] [phone] * (ABNORMAL) Comprehensive metabolic panel (11/06/2023 8:10 AM PERSONAL INJURY PARALEGAL) Only the most recent of6 resultswithin the time period is included. Sodium 136 135 - 145 mmol/L 11/06/2023 11:10 AM [facility] Comment:Reference intervals for this test were updated on 07/02/2023 to more accurately reflect our healthy population. There may be differences in the flagging of prior results with similar values performed with this method. Interpretation of those prior results can be made in the context of the updated reference intervals. Potassium 3.8 3.4 - 5.3 mmol/L 11/06/2023 11:10 AM [facility] Carbon Dioxide (CO2) 23 22 - 29 mmol/L 11/06/2023 11:10 AM [facility] Anion Gap 9 7 - 15 mmol/L 11/06/2023 11:10 AM [facility] Urea Nitrogen 4.7(L) 6.0 - 20.0 mg/dL 11/06/2023 11:10 AM [facility] Creatinine 0.40(L) 0.51 - 0.95 mg/dL 11/06/2023 11:10 AM [facility] GFR Estimate >90 >60 mL/min/1. 73m2 11/06/2023 11:10 AM [facility] Calcium 8.3(L) 8.6 - 10.0 mg/dL 11/06/2023 11:10 AM PERSONAL INJURY PARALEGAL [facility] Chloride 104 98 - 107 mmol/L 11/06/2023 11:10 AM PERSONAL INJURY PARALEGAL [facility] Glucose 116(H) 70 - 99 mg/dL 11/06/2023 11:10 AM PERSONAL INJURY PARALEGAL [facility] Alkaline Phosphatase 55 40 - 150 U/L 11/06/2023 11:10 AM PERSONAL INJURY PARALEGAL [facility] Comment:Reference intervals for this test were updated on 08/20/2023 to more accurately reflect our healthy population. There may be differences in the flagging of prior results with similar values performed with this method. Interpretation of those prior results can be made in the context of the updated reference intervals. AST 15 0 - 45 U/L 11/06/2023 11:10 AM PERSONAL INJURY PARALEGAL [facility] Comment:Reference intervals for this test were updated on 03/18/2023 to more accurately reflect our healthy population. There may be differences in the flagging of prior results with similar values performed with this method. Interpretation of those prior results can be made in the context of the updated reference intervals. ALT 8 0 - 50 U/L 11/06/2023 11:10 AM PERSONAL INJURY PARALEGAL [facility] Comment:Reference intervals for this test were updated on 03/18/2023 to more accurately reflect our healthy population. There may be differences in the flagging of prior results with similar values performed with this method. Interpretation of those prior results can be made in the context of the updated reference intervals. Protein Total 6.1(L) 6.4 - 8.3 g/dL 11/06/2023 11:10 AM PERSONAL INJURY PARALEGAL [facility] Albumin 3.8 3.5 - 5.2 g/dL 11/06/2023 11:10 AM PERSONAL INJURY PARALEGAL [facility]ORAT[facility] Bilirubin Total 0.2 <=1.2 mg/dL 11/06/2023 11:10 AM PERSONAL INJURY PARALEGAL [facility]OR[facility] Blood BLOOD SPECIMEN / Unknown Client Draw / Unknown 11/06/2023 8:10 AM PERSONAL INJURY PARALEGAL 11/06/2023 10:39 AM PERSONAL INJURY PARALEGAL Isabella Horn APRN, CNM LAB - BLOOD ORDERA [facility] Acute Care Lab [address] [facility] Lab (1st floor, no room number) [place] [address], [facility] [phone] * Extra Purple Top EDTA (LAB USE ONLY) (10/30/2023 8:50 AM PERSONAL INJURY PARALEGAL) [facility] Signature Hold Specimen [facility] 10/30/2023 1:16 PM PERSONAL INJURY PARALEGAL LABORATORY Blood CENTRAL VENOUS CATHETER / Unknown Client Draw / Unknown 10/30/2023 8:50 AM PERSONAL INJURY PARALEGAL 10/30/2023 12:15 PM PERSONAL INJURY PARALEGAL Isabella Horn ELENA CN LAB - BLOOD ORDERA BLES [facility] [address] Lab (1st floor, no room number) [place] [address], [facility] [phone] * [facility] Comprehensive Single (09/10/2023 10:16 AM PERSONAL INJURY PARALEGAL) Anatomical Region Laterality Modality Ultrasound 09/10/2023 9:35 AM PERSONAL INJURY PARALEGAL Impressions 09/10/2023 11:17 AM PERSONAL INJURY PARALEGAL IMPRESSION ----- 1) Carrasco intrauterine at 18w [...] for gestational age. Narrative 09/10/2023 11:17 AM PERSONAL INJURY PARALEGAL ?Comprehensive ----- Pat. Name: DORI BOCANEGRA ? Study Date: ??09/10/2023 9:35am Pat. NO: ??[id number] ?Referring ??MD: ISABELLA HORN Site: ??[facility] ? Program Management Manager: Dori Glen [facility] : ??1985 ?Age: ?? 38 ----- INDICATION [...] CLARKE ?56.9 ?mm ? 18w 5d ?Nicolaides HC ?155.8 ?mm ?18w 4d ?Hadlock Cerebellum tr ?19.1 ? mm ?18w 4d ?Nicolaides AC ?139.2 ?mm ?19w 2d ?62% ?Hadlock Femur ?29.0 ? mm ?18w 6d ?Hadlock Humerus ?28.0 ?mm ? 19w 0d ?Moncho Weight Calculation: EFW ? 271 ? g ? 56% ?Hadlock EFW (lb,oz) ? 0 lb 10 ? oz EFW by ?Hadlock ([id number]) Head / Face / Neck Biometry: Health And Nutrition Specialist ? 6.3 ? mm CM ?4.2 ? [...] cava. Inferior vena cava. 3-vessel ? view. 2-uhtlye-sewjzug view. Cardiac position. Cardiac size. Cardiac rhythm. [...] 30 mm, please refer Dori back to [facility] for further evaluation. If CL < 25 [...] follow up US will be scheduled in [place], or can be scheduled here at [facility]'s OB provider's discretion. Return to primary provider [...] the patient (reviewing medical records/tests), in direct mycy-lz-chqm contact with the patient during her visit with the majority spent counseling and discussing the plan of care and documenting the visit in the electronic medical record. Please see note for details. Procedure Note Obdulio Leonard MD - 09/10/2023 Comprehensive ----- Pat. Name: DORI BOCANEGRA Study Date: 09/10/2023 9:35am Pat. NO: [id number] Referring MD: ISABELLA HORN Site: [facility] Program Management Manager: Dori CONNOR [place] : 1985 Age: 38 ----- INDICATION ----- Advanced Maternal Age--Multigravida, low risk NIPT. History of PTD METHOD ----- Transabdominal and transvaginal ultrasound approaches were used.(Transvaginal ultrasound examination was required to adequately completethe exam.). View: Sufficient ----- Carrasco . Number of fetuses: 1 DATING ----- DateDetailsGest. age CARMITA LMP 05/23/2023ycle: LMP date [id number] w + 5 d 02/27/2024 Prior assessment 07/31/2023 GA: 13 w +0 d18 w + 6 d 02/05/2024 U/S 09/10/2023ased upon AC, BPD, Femur, HC18 w + 5 d 02/06/2024 Assigned dating Dating performed on 09/10/2023, based onthe prior assessment (on 07/31/2023) 18 w + 6 d5 GENERAL EVALUATION ----- Cardiac activity present. FHR [...] 0 lb 10 oz EFW by Hadlock ([id number]) Head / Face / Neck Biometry: Health And Nutrition Specialist 6.3 mm CM 4.2 mm Nasal bone [...] Superior venacava. Inferior vena cava. 3-vessel view. 6-wjsjya-wmqdjtg view.Cardiac position. Cardiac size. Cardiac rhythm. Right [...] < 30 mm, please referMary back to [facility] for further evaluation. If CL < 25 [...] these follow up US will be scheduledin [place], or can be scheduled here at [facility] provider'[facility]. Return to primary provider for continued care. [...] see the patient (reviewing medical records/tests), in fznfofrxrp-hy-hibf contact with the patient during her visit [...] normal limits for gestational age. Isabella Horn APRN CNM IMG M US ORDERAB LES from Last 3 Months Advance Directives For more information, please contact: [phone] Latest Code Status on File Code Status [...] with patient/ legal decision maker Care Teams Remote Sensing Scientist Relationship Specialty [place] [address] [place] [address] [place] [address] PCP - General Family Practice 07/15/15
--- OUTSIDE RECORDS SUMMARY | 2023-11-13 10:50 | XMS_ITS | Encounter Summary ---
Author Name Unknown Organization [place] Address [address] [facility] [facility] [address] [place] [address] Care Team Providers Care Airport Electrician Name Role Phone Bettye Macias MD Primary Care Provider Reason for Visit * Reason Comments Genetic Counseling AMA Ultrasound L2/TV-AMA, Hx PTD Encounter Details Date Type Department Care Team (Late st Contact Info) Description 09/10/2023 10:00 AM RETURN TO VENDOR Office Visit [facility] [place] [address] [place] [address] Charline Horn APRN [facility] [address] [place] [address] Obdulio Leonard MD [address] [place] [address] Multigravida of advanced maternal age in second trimester (Primary Dx); History of delivery, currently in second trimester Social History Tobacco Use Types Packs/Day Years Used Date Smoking Tobacco: Never Smokeless Tobacco: Never Alcohol Use Standard Drinks/Week Comments Yes 0 (1 standard drink = 0.6 oz pur e alcohol) occassional PHQ-2 Answer Date Recorded PHQ-2 Score 0 10/18/2018 [place] Depression Scale Answer Date Recorded Last EPDS [...] as of this encounter Progress Notes * Obdulio Leonard MD - 09/10/2023 10:00 AM CST Please see Imaging tab under Chart Review for details of today's visit. Obdulio Leonard RN TO VENDOR documented in this encounter Plan of Treatment Not on file documented as of this encounter Visit Diagnoses Diagnosis Multigravida of advanced maternal age in second trimester- Primary History of delivery, currently in second trimester documented in this encounter Care Teams Airport Electrician Relationship Specialty Start Date End Date Bettye Macias MD [address] [place] [address] PCP - General Family Practice 07/15/15 documented as of this encounter
--- OUTSIDE RECORDS SUMMARY | 2023-11-13 10:50 | XMS_ITS | Encounter Summary ---
Author Name Unknown Organization [place] Address [facility] [place] [address] Care Team Providers Care Sales Agent Name Role Phone Bettye Macias MD Primary Care Provider Reason for Referral * Diagnostic Imaging Ultrasound (Routine) - Pending Review Specialty Diagnoses / Procedures Referred By Contac t Referred To Contact Radiology. Diagnoses related condition, antepartum Procedures [facility] US Comprehensive [facility] Isabella Horn APRN [facility] [address] [place] [address] Referral ID Status Reason Start Date Expiration Date V isits Requested Visits Authorized [id number] Pending Review 08/30/2023 08/29/2024 1 1 ORATE TRAVEL AGENT Reason for Visit * Diagnostic Imaging Ultrasound (Routine) - Pending Review Specialty Diagnoses / Procedures Referred By Contac t Referred To Contact Radiology. Diagnoses related condition, antepartum Procedures [facility] Isabella Horn APRN [facility] [address] [place] [address] Referral ID Status Reason Start Date Expiration Date V isits Requested Visits Authorized [id number] Pending Review 08/30/2023 08/29/2024 1 1 Encounter Details Date Type Department Care Team (Latest Contact Info) Description 09/10/2023 8:53 AM CORPORATE TRAVEL AGENT - 09/10/2023 11:59 PM CORPORATE TRAVEL AGENT Hospital Encounter [facility] Maternal Medicine [facility] [place] [address] [place] [address] Isabella Horn APRN [facility] [address] [place] [address] Obdulio Leonard MD [address] [place] [address] related condition, antepartum Discharge Disposition: Home or Self Care Social History Tobacco Use Types Packs/Day Years Used Date Smoking Tobacco: Never Smokeless Tobacco: Never Alcohol Use Standard Drinks/Week Comments Yes 0 (1 standard drink = 0.6 oz pur e alcohol) occassional PHQ-2 Answer Date Recorded PHQ-2 Score 0 10/18/2018 [place] Depression Scale Answer Date Recorded Last EPDS [...] on file documented as of this encounter Medications at Time of Discharge Medication Sig Dispensed Refills Start Date End Date ibuprofen (ADVIL/MOTRIN) 800 MG tabletIndications: (spontaneous vaginal delivery) Take 1 tablet (800 mg) by mouth every 6 hours as needed for other (cramping) 30 tablet 0 04/21/2022 isometheptene-acetaminop hen-dichloralphenazone (MIDRIN) 65-325-100 MG per capsuleIndications:Migra ine without aura, intractable, with status migrainosus Take 1 capsule by mouth 4 times daily as needed for migraine 30 capsule 3 07/18/2015 ondansetron (ZOFRAN) 4 MG tabletIndications:Migrai ne without aura, intractable, with status migrainosus,Nausea Take 1-2 tablets (4-8 mg) by mouth every 8 hours as needed for nausea 18 tablet 5 07/18/2015 Vit-Fe Fumarate-FA ( MULTIVITAMIN W/IRON) 27-0.8 MG tablet Take 1 tablet by mouth daily 0 documented as of this encounter Plan of Treatment Not on file documented as of this encounter Procedures Procedure Name Priority Date/Time Associated Diagnosis Comments [facility] COMPREHENSIVE SINGLE Routine 09/10/2023 10:16 AM CORPORATE TRAVEL AGENT related condition, antepartum documented in this encounter Results * [facility] Comprehensive Single (09/10/2023 10:16 AM CORPORATE TRAVEL AGENT) Anatomical Region Laterality Modality Ultrasound 09/10/2023 9:35 AM CORPORATE TRAVEL AGENT Impressions 09/10/2023 11:17 AM CORPORATE TRAVEL AGENT IMPRESSION ----- 1) Carrasco intrauterine at 18w [...] for gestational age. Narrative 09/10/2023 11:17 AM CORPORATE TRAVEL AGENT ?Comprehensive ----- Pat. Name: DORI GAGE ? Study Date: ??09/10/2023 9:35am Pat. NO: ??[id number] ?Referring ??: ISABELLA HORN Site: ??[facility] ? Electrode Turner And Finisher: Dori Carroll, [facility] : ??1985 ?Age: ?? 38 [...] Biometry: BPD ?40.7 ?mm ? 18w 2d ?Hadlock OFD ?56.9 ?mm ? 18w 5d ?Nicolaides HC ?155.8 ?mm ?18w 4d ?Hadlock Cerebellum tr ?19.1 ? mm ?18w 4d ?Nicolaides AC ?139.2 ?mm ?19w 2d ?62% ?Hadlock Femur ?29.0 ? mm ?18w 6d ?Hadlock Humerus ?28.0 ?mm ? 19w 0d ?Moncho Weight Calculation: EFW ? 271 ? g ? 56% ?Hadlock EFW (lb,oz) ? 0 lb 10 ? oz EFW by ?Hadlock ([id number]) Head / Face / Neck Biometry: Electronics Hardware Design Engineer ? 6.3 ? mm CM ?4.2 ? [...] cava. Inferior vena cava. 3-vessel ? view. 8-nvchqf-nzjqbqt view. Cardiac position. Cardiac size. Cardiac rhythm. [...] 30 mm, please refer Dori back to [facility] for further evaluation. If CL < [...] follow up US will be scheduled in [place], or can be scheduled here at [facility]'s OB provider's discretion. Return to primary provider [...] the patient (reviewing medical records/tests), in direct gbva-wc-xqvh contact with the patient during her visit with the majority spent counseling and discussing the plan of care and documenting the visit in the electronic medical record. Please see note for details. Procedure Note Obdulio Leonard MD - 09/10/2023 Comprehensive ----- Pat. Name: DORI GAGE Study Date: 09/10/2023 9:35am Pat. NO: [id number] Referring MD: ISABELLA HORN Site: [facility] Electrode Turner And Finisher: Dori CarrollCONNOR : 1985 Age: 38 ----- INDICATION ----- Advanced Maternal Age--Multigravida, low risk NIPT. History of PTD METHOD ----- Transabdominal and transvaginal ultrasound approaches were used.(Transvaginal ultrasound examination was required to adequately completethe exam.). View: Sufficient ----- Carrasco . Number of fetuses: 1 DATING ----- DateDetailsGest. age CARMITA LMP 05/23/2023ycle: LMP date [id number] w + 5 d 02/27/2024 Prior assessment [...] 0 lb 10 oz EFW by Hadlock ([id number]) Head / Face / Neck Biometry: Electronics Hardware Design Engineer 6.3 mm CM 4.2 mm Nasal bone [...] Superior venacava. Inferior vena cava. 3-vessel view. 4-ktbvvl-lsbdeyq view.Cardiac position. Cardiac size. Cardiac rhythm. Right [...] < 30 mm, please referMary back to [facility] for further evaluation. If CL < [...] these follow up US will be scheduledin [place], or can be scheduled here at [facility] provider'sdiscretion. Return to primary provider for continued [...] see the patient (reviewing medical records/tests), in njaphwjphi-fl-urxn contact with the patient during her visit [...] be within normal limits for gestational age. Eanleonardo Agueroearnestine PARKER CNQuintin IMG MFM US ORDERAB LES documented in this encounter Visit Diagnoses Diagnosis related condition, antepartum documented in this encounter Care Teams Sales Agent Relationship Specialty Start Date End Date Bettye Macias MD [address] [place] [address] PCP - General Family Practice 07/15/15 documented as of this encounter
--- OUTSIDE RECORDS SUMMARY | 2023-11-13 10:51 | XMS_ITS | Clinical Summary ---
Author Name Unknown Organization [facility] Address [address] [place] [address] Care Team Providers Care Test Director Name Role Phone Unavailable Primary Care Provider Unavailabl e Source Comments You are receiving this document as you are listed as the primary care provider,follow-up provider, or the patient has been referred to you for consultation.This is in compliance with the Medicare and[facility] EHR Incentive Program,which states Providers who transition their patient to another setting of careor provider of care or refers their patient to another provider of care shouldprovide summary care record for each transition of care or referral. [facility] Allergies No known active allergies Medications Medication Sig Dispensed Refills Start Date End Date Status ondansetron (ZOFRAN-ODT) 4 MG disintegrating tablet Take 1 Tablet (4 mg) by mouth two times a day. 0 Active acetaminophen 500 MG tablet Take 2 Tablets (1,000 mg) by mouth as needed for Pain. Maximum acetaminophen dose is 4000 mg in 24 hours 0 Active Active Problems Problem Noted Date Diagnosed Date Migraine 05/27/2012 Comments Yes Immunizations Name Administration Dates Next Due Tdap 04/18/2007 Family History Medical History Relation Name Comments Cancer, Breast Maternal Grandmother nothi ng since dx. doing well. Relation Name Status Comments Father Alive Mother Alive thyroid Brother Alive healthy. No kid s Maternal Grandmother Paternal Grandmother Alive Breast cancer in her 40's Social History Tobacco Use Types Packs/Day Years Used Date Smoking Tobacco: Never Smokeless Tobacco: Never Alcohol Use Standard Drinks/Week Comments Yes 0 (1 standard drink = 0.6 oz pur e alcohol) 1-2 Comments Yes Sex and Gender Information Value Date Recorded Sex Assigned at Not on file Gender Identity Not on file Sexual Orientation Not on file Last Filed Vital Signs Vital Sign Reading Time Taken Comments Blood Pressure 120/59 08/06/2023 8:05 AM CDT Pulse 85 08/06/2023 8:05 AM CDT Temperature 36.7 ??C (98.1 ??F) 08/06/2023 8:05 AM CD T Respiratory Rate 16 08/06/2023 8:05 AM CDT Oxygen Saturation 100% 08/06/2023 8:05 AM CDT Inhaled Oxygen Concentration - - Weight - - Height - - Body Mass Index - - Plan of Treatment Health Maintenance Due Date Last Done Comments Cervical Cancer Screening Due 1985 Hep C Screening (Preventive Services) 1985 HepB (1) 1985 COVID-19 Vaccine (#1) 1985 IPV (Polio) (4 of 4 - 4-dose series) 1989 03/07/1986, 1985, 1985 HIV Screening (Preventive Services) 2001 Adult Preventive Visit 2003 HPV Vaccine (2 - 3-dose series) 05/16/2007 04/18/2007 Influenza (#1) 2023 DTaP/Tdap/Td (8 - Tdap) 10/25/2024 10/25/19 15, 04/18/2007, 04/18/2007 (Completed), Additional history exists Zoster/Shingles (1 of 2) 2035 HepA Aged Out No longer eligi ble based on patient's age to complete this topic Hib Aged Out No longer eligi ble based on patient's age to complete this topic MCV4 Aged Out No longer eligi ble based on patient's age to complete this topic Pneumococcal Aged Out No longer eligi ble based on patient's age to complete this topic Insurance Payer Benefit Plan / Group Subscriber ID Effective Dates Phone Address Type [facility] [id number] 2023-Present [phone] CLAIMS [address] [place] [address] Medicaid
--- OUTSIDE RECORDS SUMMARY | 2023-11-13 10:51 | XMS_ITS | Encounter Summary ---
Author Name Unknown Organization [place] Address [facility] [place] [address] Care Team Providers Care Stone Driller Helper Name Role Phone Bettye Macias MD Primary Care Provider Reason for Referral * Consultation (Routine: Next available opening) - Pending Review Specialty Diagnoses / Procedures Referred By Contac t Referred To Contact Diagnoses related condition, antepartum Isabella Horn APRN [facility] [address] [place] [address] Referral ID Status Reason Start Date Expiration Date V isits Requested Visits Authorized [id number] Pending Review 08/30/2023 08/29/2024 1 1 Comments AMA NESS PROJECT MANAGER * Diagnostic Imaging Ultrasound (Routine) - Pending Review Specialty Diagnoses / Procedures Referred By Contac t Referred To Contact Radiology. Diagnoses related condition, antepartum Procedures [facility] US Comprehensive Single Isabella Horn APRN [facility] [address] [place] [address] Referral ID Status Reason Start Date Expiration Date V isits Requested Visits Authorized [id number] Pending Review 08/30/2023 08/29/2024 1 1 NESS PROJECT MANAGER * Consultation (Routine: Next available opening) - Pending Review Specialty Diagnoses / Procedures Referred By Contac t Referred To Contact Diagnoses related condition, antepartum Isabella Horn APRN CNM [facility] [address] [place] [address] [facility] [address] [place] [address] Referral ID Status Reason Start Date Expiration Date V isits Requested Visits Authorized [id number] Pending Review 08/30/2023 08/29/2024 1 1 Question Answer Preferred Location: [facility] [place] 02/05/2024 Ultrasound Comprehensive US (>than 18 weeks GA) US PROC NONE MFM Issue Advanced Maternal Age *MUST request Genetic Counseling MFM MD Consultation (unrelated to Ultrasound findings): No Inflammatory Bowel Disease Clinic: Joint MFM and GI Consultation: No Chronic Kidney Disease: Joint MFM and Nephrology Consultation No Genetic Counseling Consultation: Yes fax Isabella Horn [facility] Women's Health, Comments There is no height or weight on file to calculate BMI. >> Patient may proceed with recommendations for further testing as directed by the Maternal Medicine Specialist >> >> If requesting Echo: MFM will determine appropriate location for exam due to indication. >> If requesting Lung Maturity Amnio: If results indicate lung maturity, induction or C/S is recommended within 36 hours. Please schedule accordingly. Please be aware that coverage of these services is subject to the terms and limitations of your health insurance plan. Call member services at your health plan with any benefit or coverage questions. NESS PROJECT MANAGER Encounter Details Date Type Department Care Team (Late st Contact Info) Description 08/30/[address] [facility] [place] [address] [place] [address] Isabella Horn APRN CNM [facility] [address] [place] [address] related condition, antepartum (Primary Dx) Social History Tobacco Use Types Packs/Day Years Used Date Smoking Tobacco: Never Smokeless Tobacco: Never Alcohol Use Standard Drinks/Week Comments Yes 0 (1 standard drink = 0.6 oz pur e alcohol) occassional PHQ-2 Answer Date Recorded PHQ-2 Score 0 10/18/2018 [place] Depression Scale Answer Date Recorded Last EPDS Total Score Not on file 04/21/2022 The thought of harming myself has occurred to me . Never 04/21/2022 Adolescent Education Answer Date Record ed Getting School Help Needed Not on file 07/24 Sex and Gender Information Value Date Recorded Sex Assigned at Not on file Gender Identity Not on file Sexual Orientation Not on file documented as of this encounter Plan of Treatment Scheduled Referrals Name Type Priority Associated Diagnoses Orde r Schedule Mat Med Ctr Referral - Referral Routine: Next available opening related condition, antepartum Expected: 08/30/2023 (Approximate), Expires: 02/26/2024 [facility] Genetic Counseling Referral Routine: Next available opening related condition, antepartum Expected: 09/04/2023 (Approximate), Expires: 08/30/2024 documented as of this encounter Results * [facility] US Comprehensive Single (09/10/2023 10:16 AM BUSINESS PROJECT MANAGER) Anatomical Region Laterality Modality Ultrasound 09/10/2023 9:35 AM BUSINESS PROJECT MANAGER Impressions 09/10/2023 11:17 AM BUSINESS PROJECT MANAGER IMPRESSION ----- 1) Carrasco intrauterine at 18w [...] for gestational age. Narrative 09/10/2023 11:17 AM BUSINESS PROJECT MANAGER ?Comprehensive ----- Pat. Name: OZIEL BOCANEGRA ? Study Date: ??09/10/2023 9:35am Pat. NO: ??[id number] ?Referring ??MD: ISABELLA HORN Site: ??[place] [facility] [place]: Oziel Carroll RDMS : ??1985 ?Age: ?? 38 ----- INDICATION [...] Biometry: BPD ?40.7 ?mm ? 18w 2d ?Hadgideon OFGamaliel ?56.9 ?mm ? 18w 5d ?Nicolaides HC ?155.8 ?mm ?18w 4d ?Hadlock Cerebellum tr ?19.1 ? mm ?18w 4d ?Nicolaides AC ?139.2 ?mm ?19w 2d ?62% ?Hadlock Femur ?29.0 ? mm ?18w 6d ?Hadlock Humerus ?28.0 ?mm ? 19w 0d ?Moncho Weight Calculation: EFW ? 271 ? g ? 56% ?Hadlock EFW (lb,oz) ? 0 lb 10 ? oz EFW by ?Hadlock ([id number]-PL-KM-FL) Head / Face / Neck Biometry: Orthopedic Nurse ? 6.3 ? mm CM ?4.2 ? [...] cava. Inferior vena cava. 3-vessel ? view. 2-hwgrjp-zbzpado view. Cardiac position. Cardiac size. Cardiac rhythm. [...] CL is < 30 mm, please refer Oziel back to [facility] for further evaluation. If CL < [...] follow up US will be scheduled in [place], or can be scheduled here at [facility]'s OB provider's discretion. Return to primary provider [...] the patient (reviewing medical records/tests), in direct ksht-mj-lamj contact with the patient during her visit with the majority spent counseling and discussing the plan of care and documenting the visit in the electronic medical record. Please see note for details. Procedure Note Obdulio Leonard MD - 09/10/2023 Comprehensive ----- Pat. Name: OZIEL BOCANEGRA Study Date: 09/10/2023 9:35am Pat. NO: [id number] Referring MD: ISABELLA HORN Site: [facility] [place] Mason: Oziel CONNOR Carroll : 1985 Age: 38 ----- INDICATION ----- Advanced Maternal Age--Multigravida, low risk NIPT. History of PTD METHOD ----- Transabdominal and transvaginal ultrasound approaches were used.(Transvaginal ultrasound examination was required to adequately completethe exam.). View: Sufficient ----- Carrasco . Number of fetuses: 1 DATING ----- DateDetailsGest. age CARMITA LMP 05/23/2023ycle: LMP date w + 5 d 02/27/2024 Prior assessment [...] 0 lb 10 oz EFW by Hadlock (SAR-BN-UM-FL) Head / Face / Neck Biometry: Orthopedic Nurse 6.3 mm CM 4.2 mm Nasal bone [...] Superior venacava. Inferior vena cava. 3-vessel view. 1-qqjhjc-trbvcmr view.Cardiac position. Cardiac size. Cardiac rhythm. Right [...] < 30 mm, please referMary back to [facility] for further evaluation. If CL < [...] these follow up US will be scheduledin [place], or can be scheduled here at [facility]. Return to primary provider for continued care. [...] see the patient (reviewing medical records/tests), in mlbfclizgb-xb-xngs contact with the patient during her visit [...] gestational age. Isabella Horn APRN CNM IMG [facility] US ORDERAB LES documented in this encounter Visit Diagnoses Diagnosis related condition, antepartum- Primary related condition, antepartum documented in this encounter Care Teams Stone Driller Helper Relationship Specialty Start Date End Date Bettye Macias MD [address] [place] [id number] PCP - General Family Practice 07/15/15 documented as of this encounter
--- OUTSIDE RECORDS SUMMARY | 2023-11-13 10:51 | XMS_ITS | Encounter Summary ---
Author Name Unknown Organization [place] Address [address] [place] [address] Care Team Providers Care Bellman Driver Name Role Phone Bettye Macias MD Primary Care Provider Encounter Details Date Type Department Care Team ([facility] Contact Info) Description 08/28/2023 Medical Correspondence [facility] Info Mgmt [facility] [address] [place] [address] Outside, Provider Social History Tobacco Use Types Packs/Day Years Used Date Smoking Tobacco: Never Smokeless Tobacco: Never Alcohol Use Standard Drinks/Week Comments Yes 0 (1 standard drink = 0.6 oz pur e alcohol) occassional PHQ-2 Answer Date Recorded PHQ-2 Score 0 10/18/2018 [place] Depression Scale Answer Date Recorded Last EPDS [...] on filedocumented in this encounter Care Teams Bellman Driver Relationship Specialty [place] [address] [place] [address] PCP - General Family Practice 07/15/15 documented as of this encounter
--- OUTSIDE RECORDS SUMMARY | 2023-11-13 10:51 | XMS_ITS | Clinical Summary ---
Author Name Unknown Organization [facility] Address [place], [place] [address] Care Team Providers Care Filler Operator Name Role Phone Daisy Leal MD Primary Care Provider + Allergies No known active allergies Medications Medication Sig Dispensed Refills Start Date End Date Status levonorgestrel intrauterine device (MIRENA) 20 mcg/24 hr IUD Inject 1 Device intrauterine one time. 1 Device 0 11/25/2012 Active propranolol (INDERAL) 10 mg tablet Take 1 tablet by mouth 2 times daily. 180 tablet 3 11/25/2012 Active HYDROcodone-acetam inophen, 5-500 mg, (VICODIN) tab tablet Take 1 tablet by mouth every 6 hours if needed for Pain. Max acetaminophen dose: 4000mg in 24 hrs. 20 tablet 0 09/08/2013 Active SUMAtriptan (IMITREX) 100 mg tabletIndications: Migraine TAKE 1 TABLET BY MOUTH EVERY 2 HOURS NEEDED FOR MIGRAINE. MAX 2 TABS IN 24 HOURS 9 tablet 0 11/05/2014 Active Active Problems Problem Noted Date Diagnosed Date Migraine 05/27/2012 Immunizations Name Administration Dates Next Due Tdap 04/18/2007 Family History Medical History Relation Name Comments Cancer-breast Maternal Grandmother nothin g since dx. doing well. Relation Name Status Comments Brother Alive healthy. No kid s Father Alive Maternal Grandmother Mother Alive thyroid Paternal Grandmother Alive Breast cancer in her 40's Social History Tobacco Use Types Packs/Day Years Used Date Smoking Tobacco: Never Smokeless Tobacco: Never Tobacco Cessation:Counseling Given: No Alcohol Use Standard Drinks/Week Comments Yes 0 (1 standard drink = 0.6 oz pur e alcohol) 1-2 Sex and Gender Information Value Date Recorded Sex Assigned at Not on file Gender Identity Not on file Sexual Orientation Not on file Obstetrics History Last Filed Vital Signs Vital Sign Reading Time Taken Comments Blood Pressure 98/66 11/26/2014 8:34 AM BIOPROCESSING MANUFACTURING TECHNICIAN Pulse 84 11/26/2014 8:34 AM BIOPROCESSING MANUFACTURING TECHNICIAN Temperature 36.4 ??C (97.6 ??F) 11/26/2014 8:34 AM CS T Respiratory Rate - - Oxygen Saturation 98% 09/08/2013 8:35 AM BIOPROCESSING MANUFACTURING TECHNICIAN Inhaled Oxygen Concentration - - Weight 65.9 kg (145 lb 3.2 oz) 11/26/2014 8:34 A M BIOPROCESSING MANUFACTURING TECHNICIAN Height 165.1 cm (5' 5) 11/25/2012 10:25 AM BIOPROCESSING MANUFACTURING TECHNICIAN Body Mass Index 24.16 11/25/2012 10:25 AM BIOPROCESSING MANUFACTURING TECHNICIAN Plan of Treatment Health Maintenance Due Date Last Done Comments COVID-19 vaccine series (#1) 1985 Depression screening for age 12+ 1997 HIV for age 15-65 2000 BMI (ht and wt on same day) for age 18+ 2003 Hepatitis C screening for age 18-79 2003 Tetanus booster 04/18/2017 04/18/2007, 04/18/2007 Influenza for age 9-49 06/07/2023 Pap test for age 21-65 08/15/2023 , 08/15/2020, 11/26/2014, Additional history exists Tdap Completed 04/18/2007 Pneumococcal series for age 6-64 Aged Out No longer eligible based on patient's age to complete this topic Care Teams Filler Operator Relationship Specialty Start Date End Date Daisy Leal MD [address] [place] [address] PCP - General Family Practice 05/27/12
--- OUTSIDE RECORDS SUMMARY | 2023-11-13 10:51 | XMS_ITS | Encounter Summary ---
Author Name Unknown Organization [facility] Address [address], [place] [address] Care Team Providers Care Thermometer Tester Name Role Phone Unavailable Primary Care Provider Unavailabl e Reason for Visit * Reason Comments Lump Encounter Details Date Type Department Care Team Description 08/06/2023 8:00 AM CDT Office Visit [place] [facility] [address] [place] [address] Javier Castro, PULPIT OPERATOR, SERVICE ATTENDANT [address] [place] [address] Infected sebaceous cyst Social History Tobacco Use Types Packs/Day Years Used Date Smoking Tobacco: Never Smokeless Tobacco: Never Alcohol Use Standard Drinks/Week Comments Yes 0 (1 standard drink = 0.6 oz pur e alcohol) 1-2 Comments Yes Sex and Gender Information Value Date Recorded Sex Assigned at Not on file Gender Identity Not on file Sexual Orientation Not on file documented as of this encounter Last Filed Vital Signs Vital Sign Reading Time Taken Comments Blood Pressure 120/59 08/06/2023 8:05 AM CDT Pulse 85 08/06/2023 8:05 AM CDT Temperature 36.7 ??C (98.1 ??F) 08/06/2023 8:05 AM CD T Respiratory Rate 16 08/06/2023 8:05 AM CDT Oxygen Saturation 100% 08/06/2023 8:05 AM CDT Inhaled Oxygen Concentration - - Weight - - Height - - Body Mass Index - - documented in this encounter Progress Notes * Javier Castro, PULPIT OPERATOR, SERVICE ATTENDANT - 08/06/2023 8:00 AM CDT Chief Complaint Patient presents with Lump Patient ID: Dori Bocanegra Date of : 1985 SUBJECTIVE: 38 y.o. female presents with a painful red bump that for showed up about 2 weeks ago on her right back near the bottom of her shoulder blade. Over the last few days it has gotten larger and more painful. No drainage. No fevers. No other concerns or complaints. Past medical and surgical history: Patient Active Problem List Diagnosis Migraine Family History: Family History Problem Relation Age of Onset Cancer, Breast Maternal Grandmother 40 nothing since dx. doing well. Social History: Social History Tobacco Use Smoking status: Never Smokeless tobacco: Never Substance Use Topics Alcohol use: Yes Comment: 1-2 Drug use: No Medications: acetaminophen and ondansetron Allergies: No Known Allergies ROS: These systems otherwise negative unless noted in HPI OBJECTIVE: Vitals: Blood pressure 120/59, pulse 85, temperature 36.7 ??C (98.1 ??F), temperature source Oral, resp. rate 16, last menstrual period 05/02/2023, SpO2 100 %. General: Alert, No obviousdiscomfort, well kept Eyes: PERRL, no scleral icterus ENT: Moist mucus membranes, Normal voice Resp: Normal work of breathing and No cough CV: Normal rate and rhythm, no murmurs/rubs/gallops GI: Abdomen soft and non-distended. Skin: Proximally 3.5 cm x 2 cm area of erythema with central fluctuance. No surrounding edema or induration. Musculoskeletal: No peripheral edema or calf tenderness, Normal gross ROM Neuro: Alert and oriented to person/place/time, normal sensation Psychiatric: Normal affect, cooperative, good eye contact UC Course: LABS: No results found for any visits on 08/06/23. IMAGING: No results found. Procedure: I&D: Sebaceous cyst Anesthesia: In mixture of 1% lidocaine with epinephrine and 0.5% bupivacaine to a total of 8 mls used. Patient tolerated procedure well. Procedure: 11 blade scalpel used a single straight incision was made. White thick and I was able toremove a portion of the cyst wall drainage expressed. This was left open for drainage. Packing not indicated. Medical Decision Making: Dori Bocanegra is a 38 y.o. female has signs of an abscess. I&D performed and successfully expressed purulent drainage; see above procedure note. No signs of serious infection like necrotizing fasciitis or rapid cellulitis given fever curve, no surrounding erythema over past 24 hours, no crepitus to tissues, no sensation change to tissues. Will need warm compress or soaks 3-5 times daily x 3-5 days. Discharged home with plan to f/u with surgery or primary; may return to for wound check if cannot arrange. ABX not indicated at this time. Warning signs for worsening infection and reasonsto follow up in the ED discussed. Diagnosis and Associated Orders ICD-10-CM 1. Infected sebaceous cyst L72.3 L08.9 PLAN: New Prescriptions No medications on file Warm pack for 15 min 3-5 times daily. The easiest way to do this is to take a washcloth, wet it, place in an open ziplock bag, and put in microwave. When it comes out of the microwave it will be VERY, VERY hot. Close bag. Wrap with another towel and place over area. If given Antibiotics make sure and complete the entire course. If this is a pilonidal abscess or an abscess on the lower extremity. You may do warm soapy soaks. Use a mild detergent or soap such as Dreft or Elvis's baby shampoo. So for 15 minutes 3 to 5 times a day for 3-5 days. documented in this encounter Nursing Notes * Jasvir Mac - 08/06/2023 8:00 AM CDT Dori Bocanegra is a 38 y.o.female presents to the Urgent Care for Lump Pt presents with a red, large lump on the right side of upper back below the shoulder blade for 2 weeks. Has gotten larger over the past 3 days. Patient requests an excuse letter for work/school: No documented in this encounter Plan of Treatment Not on file documented as of this encounter Visit Diagnoses Diagnosis Infected sebaceous cyst Sebaceous cyst documented in this encounter
== END 2023-11-13 10:37 | disposition home or self-care (01) ==
PROVIDERS: Visit Provider Advanced Practice Midwife
DX: Z34.83 Encounter for supervision of other normal pregnancy, third trimester (principal)
CPT/HCPCS: 86592; 86850; J2791

== ENCOUNTER 2023-12-25 11:07 | Outpatient (CLI) | payer MEDICAID, SELFPAY | END 2023-12-25 11:08 | disposition home or self-care (01) | LOC: NFLDREF 12-27 07:02 | PROVIDERS: PCP Advanced Practice Midwife; Visit Provider Advanced Practice Midwife | DX: O09.93 Supervision of high risk pregnancy, unspecified, third trimester (principal) | CPT/HCPCS: 82728 ==

== ENCOUNTER 2024-01-07 12:01 | Outpatient (CLI) | payer MEDICAID, SELFPAY ==
[2024-01-08 14:14] LABS: Strep B DNA Probe Negative (Negative)
[2024-01-08 14:23] LABS: Strep B Susceptibility Needed? No
== END 2024-01-07 12:02 | disposition home or self-care (01) ==
LOC: NFLDREF 12:02
PROVIDERS: Visit Provider Advanced Practice Midwife
DX: O09.523 Supervision of elderly multigravida, third trimester (principal); Z3A.35 35 weeks gestation of pregnancy
CPT/HCPCS: 87081; 87653

== ENCOUNTER 2024-01-10 10:00 | Outpatient (RCR) | payer MEDICAID, SELFPAY ==
--- NOTE | 2023-12-30 13:58 | ONC.NURNOTE ---
Dx: Iron Deficiency Anemia.
--- NOTE | 2023-12-30 14:47 | URNOTE ---
?Request received for authorization for Ferric Carboxymaltose ([id number]). Prior authorization is not required per [facility] Medical Injectable Authorization list.
[2024-01-03 11:38] VITALS: BP 105/72; PULSE 92; RESP 16; TEMP 36.3; O2SAT 96
[2024-01-03 12:15] VITALS: BP 95/53; PULSE 89; RESP 14; TEMP 36.6; O2SAT 99
[2024-01-03] MEDS: FERRIC CARBOXYMALTOSE 750 MG in 0.9 % SODIUM CHLORIDE 250 ml 250 ML 1060 MG IVPB (12:22)
[2024-01-03 12:43] VITALS: BP 103/58; PULSE 76; TEMP 36.4; O2SAT 97
[2024-01-03] MEDS: 0.9 % SODIUM CHLORIDE 250 ml IV (13:13)
[2024-01-03] MEDS: SODIUM CHLORIDE 0.9 % (FLUSH) 10 ML SYRINGE IVF (13:13)
[2024-01-10 10:10] VITALS: BP 87/60; PULSE 100; RESP 16; TEMP 37.1; O2SAT 99
[2024-01-10] MEDS: 0.9 % SODIUM CHLORIDE 250 ml IV (10:35)
[2024-01-10] MEDS: SODIUM CHLORIDE 0.9 % (FLUSH) 10 ML SYRINGE IVF ×2 (10:35→11:49)
[2024-01-10] MEDS: FERRIC CARBOXYMALTOSE 750 MG in 0.9 % SODIUM CHLORIDE 250 ml 250 ML 825 MG IVPB (10:35)
[2024-01-10 11:08] VITALS: BP 105/70; PULSE 84; RESP 16; TEMP 36.6; O2SAT 99
[2024-01-10 11:47] VITALS: BP 106/66; PULSE 77; RESP 18; TEMP 36.5; O2SAT 98
== END 2024-07-01 23:59 | disposition home or self-care (01) ==
LOC: CCIC 10:00
PROVIDERS: Visit Provider Advanced Practice Midwife
DX: D50.9 Iron deficiency anemia, unspecified (principal)
CPT/HCPCS: 96365; J1439; J7050

== ENCOUNTER 2024-01-23 09:21 | Outpatient (CLI) | payer MEDICAID, SELFPAY | END 2024-01-23 09:22 | disposition home or self-care (01) | LOC: NFLDREF 09:21 | PROVIDERS: Visit Provider Advanced Practice Midwife | DX: R11.10 Vomiting, unspecified (principal) | CPT/HCPCS: 80053 ==

== ENCOUNTER 2024-01-29 00:58 | Inpatient (IN) | payer MEDICAID, SELFPAY ==
[2024-01-29] VITALS (19 sets, daily range): BP systolic 114–163; BP diastolic 57–89; PULSE 64–101; RESP 16–18; TEMP 36.5–36.9; O2SAT 96–99; BMI 23.2
--- OUTSIDE RECORDS SUMMARY | 2024-01-29 00:47 | XMS_ITS | Clinical Summary ---
Author Name Unknown Organization [facility] Address [address] [place] [address] Care Team Providers Care Monitor Technician Name Role Phone Unavailable Primary Care Provider Unavailabl e Source Comments You are receiving this document as you are listed as the primary care provider,follow-up provider, or the patient has been referred to you for consultation.This is in compliance with the Medicare and[facility] EHR Incentive Program,which states Providers who transition their patient to another setting of careor provider of care or refers their patient to another provider of care shouldprovide summary care record for each transition of care or referral. [facility] Allergies No known active allergies Medications Medication Sig Dispensed Refills Start Date End Date Status ondansetron (ZOFRAN-ODT) 4 MG disintegrating tablet Take 1 Tablet (4 mg) by mouth two times a day. Active acetaminophen 500 MG tablet Take 2 Tablets (1,000 mg) by mouth as needed for Pain. Maximum acetaminophen dose is 4000 mg in 24 hours Active Active Problems Problem Noted Date Diagnosed [...] 1985 Hep C Screening (Preventive Services) 1985 IPV (Polio) (4 of 4 - 4-dose series) 1989 03/07/1986, 1985, 1985 HIV Screening (Preventive Services) 2001 Adult Preventive Visit 2003 HepB (1) 2004 HPV Vaccine (2 - 3-dose series) 05/16/2007 04/18/2007 COVID-19 Vaccine (2022-24 season) 2023 Influenza (#1) 2023 DTaP/Tdap/Td (8 - Tdap) [...] Effective Dates Phone Address Type [facility] [id number] 2023-Present [phone] CLAIMS [address] [place] [address] Medicaid
--- OUTSIDE RECORDS SUMMARY | 2024-01-29 00:47 | XMS_ITS | Referral Summary ---
Author Name Unknown Organization [facility] Address [address] [place] [address] Care Team Providers Care Picker Tender Helper Name Role Phone Bettye Macias MD [...] tablet Take 1 tablet by mouth daily Active ibuprofen (ADVIL/MOTRIN) 800 MG tabletIndications:S VD (spontaneous vaginal delivery) Take 1 tablet (800 mg) by mouth every 6 hours as needed for other (cramping) 30 tablet 04/21/2022 Active Active Problems Patient Care Coordination [...] Answer Date Recorded PHQ-2 Score 0 10/18/2018 [place] Depression Scale Answer Date Recorded Last EPDS [...] Priority Date/Time Associated Diagnosis Comments MAGNESIUM Routine 01/22/2024 8:15 AM CDT Mild hyperemesis gravidarum COMPREHENSIVE METABOLIC PANEL Routine 01/22/2024 8:15 AM CDT Mild hyperemesis gravidarum MAGNESIUM Routine 01/08/2024 3:00 PM CDT Mild hyperemesis gravidarum COMPREHENSIVE METABOLIC PANEL Routine 01/08/2024 3:00 PM CDT Mild hyperemesis gravidarum MAGNESIUM Routine 12/25/2023 8:00 AM CDT Mild hyperemesis gravidarum COMPREHENSIVE METABOLIC PANEL Routine 12/25/2023 8:00 AM CDT Mild hyperemesis gravidarum MAGNESIUM Routine 12/18/2023 10:45 AM CDT Mild hyperemesis gravidarum COMPREHENSIVE METABOLIC PANEL Routine 12/18/2023 10:45 AM CDT Mild hyperemesis gravidarum MAGNESIUM Routine 12/11/2023 8:10 AM COMMUNITY AFFAIRS MANAGER Mild hyperemesis gravidarum COMPREHENSIVE METABOLIC PANEL Routine 12/11/2023 8:10 AM COMMUNITY AFFAIRS MANAGER Mild hyperemesis gravidarum MAGNESIUM Routine 12/04/2023 11:00 AM COMMUNITY AFFAIRS MANAGER Mild hyperemesis gravidarum COMPREHENSIVE METABOLIC PANEL Routine 12/04/2023 11:00 AM COMMUNITY AFFAIRS MANAGER Mild hyperemesis gravidarum MAGNESIUM Routine 11/27/2023 8:10 AM COMMUNITY AFFAIRS MANAGER Mild hyperemesis gravidarum COMPREHENSIVE METABOLIC PANEL Routine 11/27/2023 8:10 AM COMMUNITY AFFAIRS MANAGER Mild hyperemesis gravidarum MAGNESIUM Routine 11/20/2023 12:20 PM COMMUNITY AFFAIRS MANAGER Mild hyperemesis gravidarum COMPREHENSIVE METABOLIC PANEL Routine 11/20/2023 12:20 PM COMMUNITY AFFAIRS MANAGER Mild hyperemesis gravidarum MAGNESIUM Routine 11/06/2023 8:10 AM COMMUNITY AFFAIRS MANAGER Hyperemesis gravidarum with metabolic disturbance COMPREHENSIVE METABOLIC PANEL Routine 11/06/2023 8:10 AM COMMUNITY AFFAIRS MANAGER Hyperemesis gravidarum with metabolic disturbance EXTRA PURPLE TOP EDTA (LAB USE ONLY) Routine 10/30/2023 8:50 AM COMMUNITY AFFAIRS MANAGER Mild hyperemesis gravidarum MAGNESIUM Routine 10/30/2023 8:50 AM COMMUNITY AFFAIRS MANAGER Mild hyperemesis gravidarum COMPREHENSIVE METABOLIC PANEL Routine 10/30/2023 8:50 AM COMMUNITY AFFAIRS MANAGER Mild hyperemesis gravidarum GROUP B STREP PCR Routine 2022 2:2 6 PM CDT ABO/RH TYPE AND SCREEN STAT 2:26 PM CDT HCL PAP SMEAR Routine 03/01/1999 1:18 PM CDT Gynecologic Examination from Last 3 Months or Most Recently Relevant to Health Maintenance Results * Magnesium (01/22/2024 8:15 AM CDT) Only the most recent of10 resultswithin the time period is included. Magnesium 1.7 1.7 - 2.3 mg/dL 01/22/2024 10:19 AM CDT [facility] Blood BLOOD SPECIMEN / Unknown Client Draw / Unknown 01/22/2024 8:15 AM CDT 01/22/2024 9:57 AM CDT Charline Horn APRN CNM LAB - BLOOD ORDERA BLES [facility] Lab [address] Lab (1st floor, no room number) [place] [address], [facility] * (ABNORMAL) Comprehensive metabolic panel (01/22/2024 8:15 AM CDT) Only the most recent of10 resultswithin the time period is included. Sodium 134(L) 135 - 145 mmol/L 01/22/2024 10:19 AM CDT [facility] Comment:Reference intervals for this test were updated on 07/02/2023 to more accurately reflect our healthy population. There may be differences in the flagging of prior results with similar values performed with this method. Interpretation of those prior results can be made in the context of the updated reference intervals. Potassium 3.5 3.4 - 5.3 mmol/L 01/22/2024 10:19 AM CDT [facility] Carbon Dioxide (CO2) 18(L) 22 - 29 mmol/L 01/22/2024 10:19 AM CDT [facility] Anion Gap 15 7 - 15 mmol/L 01/22/2024 10:19 AM CDT [facility] Urea Nitrogen 7.9 6.0 - 20.0 mg/dL 01/22/2024 10:19 AM CDT [facility] Creatinine 0.40(L) 0.51 - 0.95 mg/dL 01/22/2024 10:19 AM CDT [facility] GFR Estimate >90 >60 mL/min/1. 73m2 01/22/2024 10:19 AM CDT [facility] Calcium 8.6 8.6 - 10.0 mg/dL 01/22/2024 10:19 AM CDT [facility] Chloride 101 98 - 107 mmol/L 01/22/2024 10:19 AM CDT [facility] Glucose 75 70 - 99 mg/dL 01/22/2024 10:19 AM CDT [facility] Alkaline Phosphatase 134 40 - 150 U/L 01/22/2024 10:19 AM CDT [facility] Comment:Reference intervals for this test were updated on 08/20/2023 to more accurately reflect our healthy population. There may be differences in the flagging of prior results with similar values performed with this method. Interpretation of those prior results can be made in the context of the updated reference intervals. AST 20 0 - 45 U/L 01/22/2024 10:19 AM CDT [facility] Comment:Reference intervals for this test were updated on 03/18/2023 to more accurately reflect our healthy population. There may be differences in the flagging of prior results with similar values performed with this method. Interpretation of those prior results can be made in the context of the updated reference intervals. ALT 11 0 - 50 U/L 01/22/2024 10:19 AM CDT [facility] Comment:Reference intervals for this test were updated on 03/18/2023 to more accurately reflect our healthy population. There may be differences in the flagging of prior results with similar values performed with this method. Interpretation of those prior results can be made in the context of the updated reference intervals. Protein Total 6.2(L) 6.4 - 8.3 g/dL 01/22/2024 10:19 AM CDT [facility] Albumin 3.7 3.5 - 5.2 g/dL 01/22/2024 10:19 AM CDT [facility] Bilirubin Total 0.4 <=1.2 mg/dL 01/22/2024 10:19 AM CDT [facility] Blood BLOOD SPECIMEN / Unknown Client Draw / Unknown 01/22/2024 8:15 AM CDT 01/22/2024 9:57 AM CDT Charline PORTILLO LAB - BLOOD ORDERA BLES [facility] [address] Lab (1st floor, no room number) [place] [address], [facility] * Extra Purple Top EDTA (LAB USE ONLY) (10/30/2023 8:50 AM COMMUNITY AFFAIRS MANAGER) [facility] Hold Specimen [facility] 10/30/2023 1:16 PM COMMUNITY AFFAIRS MANAGER [facility] Blood CENTRAL VENOUS CATHETER / Unknown Client Draw / Unknown 10/30/2023 8:50 AM COMMUNITY AFFAIRS MANAGER 10/30/2023 12:15 PM COMMUNITY AFFAIRS MANAGER Charline PORTILLO LAB - BLOOD ORDERA BLES [facility] [address] Lab (1st floor, no room number) [place] [phone], [facility] [phone] * Group B strep PCR (2022 2:26 PM CDT) Group B Strep PCR Negative Negative 022 5:18 PM CDT [facility] Comment:Presumed negative fo r Streptococcus agalactiae (Group B Streptococcus) or the number of organisms may be below the limit of detection of the assay. Swab STRUCTURE OF RECTOVAGINAL SEPTUM / Unknown Non-blood Collection / Unknown 2022 2:26 PM CDT 2022 2:42 PM CDT Narrative [facility] - 04/20/2022 5:18 PM CDT The Cepheid Xpert GBS LB Assay, performed on the [employer]?? Instrument Systems, is a qualitative in vitro diagnostic test designed to detect Group B Streptococcus (GBS) DNA from enriched vaginal/rectal swab specimens, using fully automated, real- time polymerase chain reaction (PCR) with fluorogenic detection of the amplified DNA. Xpert GBS LB Assay testing is indicated as an aid in determining GBS colonization status in antepartum women. This assay does not diagnose or monitor treatment for GBS infections. The Cepheid Xpert GBS LB Assay is intended for use in hospital, reference or state laboratory settings. The device is not intended for [id number] use. Ines Martinez MD LAB - MICRO GENE RAL ORDERABLES [facility] Inf. Diseases Diag. Lab [address] [facility], [address] [place] [address], [facility] [phone] * PAP SMEAR (03/01/1999 1:18 PM CDT) Unlabelled DNR [facility] Biopsy Sent DNR [facility] Source VAG,CERV,E NDOCERV [facility] LMP POST [facility] PARA 3 [facility] 2 [facility] Clinical History DNR [facility] Therapy DNR [facility] Last Pap Diagnosis WITHIN NORMAL LIMITS [facility] PAP Date [id number] [facility] Specimen # DNR [facility] Tissue DNR [facility] Tissue Date DNR [facility] Statement of Adequacy [facility] Comment: SATISFACTORY FOR INTERPRETATION POST MENOPAUSAL PATIENT. ??NO ENDOCERVICAL CELLS SEEN. General Categorization DNR [facility] Descriptive Diagnosis [facility] Comment: WITHIN NORMAL LIMITS ATROPHIC CELL PATTERN Recommendations DNR QUES [facility] DNR 114,,,,,, [facility] DNR DNR [facility] DNR DNR [facility] DNR DNR [facility] . [facility] Comment: ?PAP SMEARS ARE SUBJECT TO BOTH FALSE NEGATIVE AND FALSE ? POSITIVE RESULTS EVIDENCED BY DATA PUBLISHED IN THE ? MEDICAL LITERATURE. ??YOUR PATIENT'S RESULT SHOULD BE ? INTERPRETED IN THIS CONTEXT, TOGETHER WITH THE PATIENT'S ? HISTORY AND CLINICAL FINDINGS. TESTING LOCATION ? THIS TEST WAS PERFORMED AT [id number] ? [facility]. [id number] ? PHONE NUMBERS FOR CYTOLOGY INQUIRES, INCLUDING SLIDE REQUESTS ? EXT. [id number] ?? EXT. [id number] 02/27/1999 Irene Dhillon MD LABORATORY [facility] from Last 3 Months or Most Recently Relevant to Health Maintenance Advance Directives For more information, please contact: [phone] * Full Code (Latest Code Status on File) Date Activated Date Inactivated Comments 04/21/2022 12:52 PM 04/21/2022 4:44 PM All basic a nd advanced life-sustaining interventions are performed as appropriate Question Answer Comments Code status determined by: Discussion with talat nt/ legal decision maker * Full Code Date Activated Date Inactivated Comments 2022 2:21 PM 2022 6:21 PM All basic an d advanced life-sustaining interventions are performed as appropriate Question Answer Comments Code status determined by: Discussion with talat nt/ legal decision maker Care Teams Picker Tender Helper Relationship Specialty Start Date End Date Bettye Macias MD [address] [place] [id number] PCP - General Family Practice 07/15/15
--- OUTSIDE RECORDS SUMMARY | 2024-01-29 00:47 | XMS_ITS | Clinical Summary ---
Author Name Unknown Organization [facility] Address [place], [place] [address] Care Team Providers Care Hse Manager Name Role Phone Daisy Leal MD Primary [...] Comments Blood Pressure 98/66 11/26/2014 8:34 AM EXECUTIVE VICE PRESIDENT Pulse 84 11/26/2014 8:34 AM EXECUTIVE VICE PRESIDENT Temperature 36.4 ??C (97.6 ??F) 11/26/2014 8:34 AM CS T Respiratory Rate - - Oxygen Saturation 98% 09/08/2013 8:35 AM EXECUTIVE VICE PRESIDENT Inhaled Oxygen Concentration - - Weight 65.9 kg (145 lb 3.2 oz) 11/26/2014 8:34 A M EXECUTIVE VICE PRESIDENT Height 165.1 cm (5' 5) 11/25/2012 10:25 AM EXECUTIVE VICE PRESIDENT Body Mass Index 24.16 11/25/2012 10:25 AM EXECUTIVE VICE PRESIDENT Plan of Treatment Health Maintenance Due Date Last Done Comments Depression screening for age 12+ 1997 HIV for age 15-65 2000 BMI (ht and wt on same day) for age 18+ 2003 Hepatitis C screening for age 18-79 2003 Tetanus booster 04/18/2017 04/18/2007, 04/18/2007 COVID-19 vaccine series (2022-24 season) 2023 Pap test for age 21-65 08/15/2023 0, 08/15/2020, 11/26/2014, Additional history exists Influenza for age 9-49 06/07/2024 Tdap Completed 04/18/2007 Pneumococcal series for age 6-64 Aged Out No longer eligible based on patient's age to complete this topic Procedures Procedure Name Priority Date/Time Associated Diagnosis Comments FINANCIAL MARKET DEALER THIN PREP PAP SCREEN IMAGED Routine 08/15/2020 12:00 PM EXECUTIVE VICE PRESIDENT from Last 3 Months or Most Recently Relevant to Health Maintenance Results * FINANCIAL MARKET DEALER THIN PREP PAP SCREEN IMAGED (08/15/2020 12:00 PM EXECUTIVE VICE PRESIDENT) Case Report Gynecologic Cytology Report ? Case: [id number] ? Authorizing Provider: ??Bohren, Bettye L, CNM ? Collected: ? 08/15/2020 1200 ? Ordering Location: ? [facility] ?Received: ?08/16/2020 1702 ? First Screen: ?Tha Magdaleno ? Specimen: ?FINANCIAL MARKET DEALER ThinPrep Vial Screening, Cervical/Vaginal ? 08/24/2020 10:23 [facility] ENTRAL LABORATORY INTERPRETATION/ RESULT NEGATIVE FOR INTRAEPITHELIAL LESION OR MALIGNANCY (NIL) (none) 08/24/2020 10:23 AM [facility] LABORATORY ENTRAL LABORATORY IMEN ADEQUACY Satisfactory for evaluation Endocervical component present 08/24/2020 10:23 AM [facility] LAB[facility]AT[facility] ENTRAL LABORATORY HPV REQUEST HPV and PAP 08/24/2020 10:23 AM [facility] LABORATORY-C ENTRAL LABORATORY Date of LMP 08/24/2020 10:23 AM [facility] ENTRAL LABORATORY Comment:06/2017 Last Pap Date 08/24/2020 10:23 AM [facility] LAB[facility] ENTRAL LABORATORY Comment:abnormal per patient Menstrual Status 08/24/2020 10:23 AM [facility]- ENTRAL LABORATORY Additional Information 08/24/2020 10:23 AM [facility] ENTRAL LABORATORY Comment: Interpreted at [facility] - [address] [place] [address], [place] [address] Automated Review Successful 08/24/2020 10:23 AM [facility] ENTRAL LABORATORY Comment:Specimen processed s uccessfully by automated government contracts manager device, ThinPrep Imaging System, [employer] ANCILLARY TESTING FINANCIAL MARKET DEALER HPV Ordered, Please see separate report 08/24/2020 10:23 AM EXECUTIVE VICE PRESIDENT [facility]C ENTRAL LABORATORY Note The pap test is a screening technique, not a diagnostic procedure. It is used primarily to screen for squamous cancers and precursor lesions. Published studies have shown that it is subject to both false negative and false positive results. The pap test should not be used as the sole means to diagnose or exclude pre-malignant and malignant lesions. 08/24/2020 10:23 AM EXECUTIVE VICE PRESIDENT [facility]-C ENTRAL LABORATORY Other (Cervical/Vagina l) 08/15/2020 12:00 PM EXECUTIVE VICE PRESIDENT 08/16/2020 5:02 PM EXECUTIVE VICE PRESIDENT Bettye Ratliff CNM PATHOLOGY/CYTOLOGY [place] LABORATORY-CENTRAL LABORATORY [address] [place] [address], from Last 3 Months or Most Recently Relevant to Health Maintenance Care Teams Hse Manager Relationship Specialty Start Date End Date Daisy Leal MD [address] [id number] PCP - General Family Practice 05/27/12
--- OUTSIDE RECORDS SUMMARY | 2024-01-29 00:47 | XMS_ITS | Clinical Summary ---
Author Name Unknown Organization [place] Address [facility] [place] [address] Care Team Providers Care Drafting Clerk Name Role Phone Bettye Macias MD Primary [...] Answer Date Recorded PHQ-2 Score 0 10/18/2018 [place] Depression Scale Answer Date Recorded Last EPDS [...] 1985 ANNUAL REVIEW OF HM ORDERS 1985 YEARLY PREVENTIVE VISIT 1985 IPV IMMUNIZATION (4 of 4 - 4-dose series) 1989 03/07/1986, 1985, 1985 HIV SCREENING 2000 HEPATITIS C SCREENING 2003 HEPATITIS B IMMUNIZATION (1 of 3 - 19+ 3-dose series) 2004 HPV IMMUNIZATION (2 - 3-dose series) 05/16/2007 04/18/2007 EYE EXAM 11/16/2016 11/16/2015, 11/16/2015 COVID-19 Vaccine ( season) 2023 INFLUENZA VACCINE (#1) 2023 MATERNAL SCREENING DISCUSSION 07/10/2023 PAP 08/15/2023 08/15/2020, 1106/2020, 07/15/2015, Additional history exists PHQ-2 (once per calendar year) 2023 06/02/2016, 07/18/2015 OBGCT (OB) 10/16/2023 REPEAT ANTIBODY SCREEN (OB) 11/13/2023 2022 GROUP B STREP SCREENING 01/08/2024 2022 DTAP/TDAP/TD IMMUNIZATION (8 - Td or Tdap) 10/25/2024 10/25/2014, 04/18/2007, 05/31/1998, Additional history exists GLUCOSE 01/21/2027 01/22/2024, 04/0 12/2023, 12/25/2023, Additional history exists MIGRAINE ACTION PLAN Completed [...] hyperemesis gravidarum MAGNESIUM Routine 12/11/2023 8:10 AM DUST COLLECTOR TREATER Mild hyperemesis gravidarum COMPREHENSIVE METABOLIC PANEL Routine 12/11/2023 8:10 AM DUST COLLECTOR TREATER Mild hyperemesis gravidarum MAGNESIUM Routine 12/04/2023 11:00 AM DUST COLLECTOR TREATER Mild hyperemesis gravidarum COMPREHENSIVE METABOLIC PANEL Routine 12/04/2023 11:00 AM DUST COLLECTOR TREATER Mild hyperemesis gravidarum MAGNESIUM Routine 11/27/2023 8:10 AM DUST COLLECTOR TREATER Mild hyperemesis gravidarum COMPREHENSIVE METABOLIC PANEL Routine 11/27/2023 8:10 AM DUST COLLECTOR TREATER Mild hyperemesis gravidarum MAGNESIUM Routine 11/20/2023 12:20 PM DUST COLLECTOR TREATER Mild hyperemesis gravidarum COMPREHENSIVE METABOLIC PANEL Routine 11/20/2023 12:20 PM DUST COLLECTOR TREATER Mild hyperemesis gravidarum MAGNESIUM Routine 11/06/2023 8:10 AM DUST COLLECTOR TREATER Hyperemesis gravidarum with metabolic disturbance COMPREHENSIVE METABOLIC PANEL Routine 11/06/2023 8:10 AM DUST COLLECTOR TREATER Hyperemesis gravidarum with metabolic disturbance EXTRA PURPLE TOP EDTA (LAB USE ONLY) Routine 10/30/2023 8:50 AM DUST COLLECTOR TREATER Mild hyperemesis gravidarum MAGNESIUM Routine 10/30/2023 8:50 AM DUST COLLECTOR TREATER Mild hyperemesis gravidarum COMPREHENSIVE METABOLIC PANEL Routine 10/30/2023 8:50 AM DUST COLLECTOR TREATER Mild hyperemesis gravidarum GROUP B STREP PCR [...] CNM LAB - BLOOD ORDERA BLES LABORATORY [facility] Lab [address] [facility] Lab (1st floor, no room number) [place] [address], [place] * (ABNORMAL) Comprehensive metabolic panel (01/22/2024 8:15 AM CDT) Only the most recent of10 resultswithin the time period is included. [facility] Signature Sodium 134(L) 135 - 145 mmol/L 01/22/2024 [...] 01/22/2024 9:57 AM CDT Charline Horn APRN [facility] LAB - BLOOD ORDERA BLES [facility] [address] Lab (1st floor, no room number) [place] [address], [facility] * Extra Purple Top EDTA (LAB USE ONLY) (10/30/2023 8:50 AM DUST COLLECTOR TREATER) [facility] Hold Specimen [facility] 10/30/2023 1:16 PM DUST COLLECTOR TREATER [facility] Blood CENTRAL VENOUS CATHETER / Unknown Client Draw / Unknown 10/30/2023 8:50 AM DUST COLLECTOR TREATER 10/30/2023 12:15 PM DUST COLLECTOR TREATER Charline Horn APRN [facility] LAB - BLOOD ORDERA BLES [facility] Lab [address] Lab (1st floor, no room number) [place] [address], [place] [phone] * Group B strep PCR (2022 2:26 [...] LABORATORY - 04/20/2022 5:18 PM CDT The [employer] Xpert GBS LB Assay, performed on the [employer]?? THREAT STREAM Systems, is a qualitative in vitro diagnostic [...] settings. The device is not intended for nqjkz-fr-bhto use. Ines Martinez MD LAB - MICRO GENE RAL ORDERABLES [facility] Inf. Diseases Diag. Lab [address] [facility], [address] [place] [address], [facility] [phone] * PAP SMEAR (03/01/1999 1:18 PM CDT) Unlabelled DNR [facility] Biopsy Sent DNR [facility] Source VAG,CERV,E NDOCERV [facility] LMP POST [facility] PARA 3 [facility] 2 [facility] Clinical History DNR [facility] Therapy DNR [facility] Last Pap Diagnosis WITHIN NORMAL LIMITS [facility] PAP Date [id number] [facility] Specimen # DNR [facility] Tissue DNR [facility] Tissue Date DNR [facility] Statement of Adequacy [facility] Comment: SATISFACTORY FOR INTERPRETATION POST MENOPAUSAL PATIENT. ??NO ENDOCERVICAL CELLS SEEN. General Categorization DNR [facility] Descriptive Diagnosis [facility] Comment: WITHIN NORMAL LIMITS ATROPHIC CELL PATTERN Recommendations DNR QUES [facility] DNR 114,,,,,, [place] DNR DNR [facility] DNR DNR [facility] DNR DNR [facility] . [facility] Comment: ?PAP SMEARS ARE SUBJECT TO BOTH FALSE NEGATIVE AND FALSE ? POSITIVE RESULTS EVIDENCED BY DATA PUBLISHED IN THE ? MEDICAL LITERATURE. ??YOUR PATIENT'S RESULT SHOULD BE ? INTERPRETED IN THIS CONTEXT, TOGETHER WITH THE PATIENT'S ? HISTORY AND CLINICAL FINDINGS. TESTING LOCATION ? THIS TEST [facility] ? [address] [facility]. [id number] ? PHONE NUMBERS FOR CYTOLOGY INQUIRES, INCLUDING SLIDE REQUESTS ? EXT. [id number] ?? EXT. [id number] 02/27/1999 Irene Dhillon MD LABORATORY Performing Organization Address City/State/[facility] Co de Phone Number [facility] from Last 3 Months or Most Recently Relevant to Health Maintenance Advance Directives For more information, please contact: [phone] * Full Code (Latest Code Status on File) Date Activated Date Inactivated Comments 04/21/2022 12:52 PM 04/21/2022 4:44 PM All basic a nd advanced life-sustaining interventions are performed as appropriate Question Answer Comments Code status determined by: Discussion with patie nt/ legal decision maker * Full Code Date Activated Date Inactivated Comments 2022 2:21 PM 2022 6:21 PM All basic an d advanced life-sustaining interventions are performed as appropriate Question Answer Comments Code status determined by: Discussion with michellee nt/ legal decision maker Care Teams Drafting Clerk Relationship Specialty Start Date End Date Bettye Macias MD [address] [place] [phone] PCP - General Family Practice 07/15/15
[2024-01-29] MEDS: OXYTOCIN 10 UNIT/ML INJ IM (02:20)
--- NOTE | 2024-01-29 02:38 | P.LDBA_ITS ---
Subjective History of Present Illness Date Seen: 01/29/24 Narrative: Dori is being admitted to Labor and Delivery for active labor. She is a 38 year old at 39.0 weeks gestation. Her full history and physical was dictated by Connor Tilley CNM on 01/17/24. Please see this for details. On admission she has some elevated blood pressures. One in the severe range but recheck was in non- severe range. Specific Issues/Plans Ryan H&P done by Connor Tilley CNM on 01/17/2024 1. Hx of 33 weeks, last delivery per MFM recommended TV cervical length at 21 and 23 weeks 21wks: 46mm 23wks: 45mm, no further needed if <30mm refer back MFM if <25mm call to discuss short interval f/u either cerclage or vaginal progesterone if >30mm at 23 weeks can discontinue CL checks 2. Hx Hyperemesis N/V all day every day at first OB visit (8+) times a day Rx Zofran Set up for home IV infusions (08/28 reports gets 2 liters a day) Thiamin 100mg ordered TID per HER recommendations Per MFM growth between 26-28 weeks and the Q 4-6 weeks after 28 wk US ordered 09/24/23 added Protonix, scheduled Zofran, Phenergan, multivitamins in IV and Medrol pack. Improving. PICC placement. 10/10 Labs drawn weekly by infusion nurse. Needs UA every other week in the clinic. UA ordered for appointment on 10/09/23. 11/13. Deferred UA, patient feeling improvement, using fluids as needed. Aware if it worsens again, we should have a UA repeated. US for growth 11/13: 59%ile Recommended daily colace 3. Migraines without aura worse at NOB Rx Reglan takes if Tylenol doesn't work Imitrex added 6. Rh negative Rhogam at 28 weeks: given 11/13 7. AMA age >35 level II US ordered- WNL [id number] testing negative AFP drawn 8. Anemia, Hgb 9.8 at 28 weeks Started EOD iron, consider IV therapy if not improving Hgb at 34wks 9.7, IV infusions ordered COVID: declined Flu: declined TDAP: declined 32wk Mental Health: 34wk Hgb: OB - Problem Based A/P Additional Plan (1) 39 weeks gestation of : Status: Acute (2) Distress from pain in labor: Status: Acute (3) Elevated blood pressure reading without diagnosis of hypertension: Status: Acute Plan Assessment:?? at 39.0 weeks gestation?? GBS negative? Patient is coping well with challenges of labor.?? Labor type: Spontaneous, Active labor? Category 1 FHR pattern.? complicated by: 1. Hx of 33 weeks, last delivery per MFM recommended TV cervical length at 21 and 23 weeks 21wks: 46mm 23wks: 45mm, no further needed if <30mm refer back MFM if <25mm call to discuss short interval f/u either cerclage or vaginal progesterone if >30mm at 23 weeks can discontinue CL checks 2. Hx Hyperemesis N/V all day every day at first OB visit (8+) times a day Rx Zofran Set up for home IV infusions (08/28 reports gets 2 liters a day) Thiamin 100mg ordered TID per HER recommendations Per MFM growth between 26-28 weeks and the Q 4-6 weeks after 28 wk US ordered 09/24/23 added Protonix, scheduled Zofran, Phenergan, multivitamins in IV and Medrol pack. Improving. PICC placement. 10/10 Labs drawn weekly by infusion nurse. Needs UA every other week in the clinic. UA ordered for appointment on 10/09/23. 11/13. Deferred UA, patient feeling improvement, using fluids as needed. Aware if it worsens again, we should have a UA repeated. US for growth 11/13: 59%ile Recommended daily colace 3. Migraines without aura worse at NOB Rx Reglan takes if Tylenol doesn't work Imitrex added 6. Rh negative Rhogam at 28 weeks: given 11/13 7. AMA age >35 level II US ordered- WNL [id number] testing negative AFP drawn 8. Anemia, Hgb 9.8 at 28 weeks Started EOD iron, consider IV therapy if not improving Hgb at 34wks 9.7, IV infusions ordered Plan:?? * ?Admit to L & D? * IV access: Has PICC line in place * Monitoring per policy: intermittent? * Candidate for analgesia of choice.? Planning unmedicated for pain management * Desires waterbirth.? Consent signed and Hep C negative * Expectant management at this time * Monitor blood pressures. Consider labs if continue to be elevated.? * Patient encouraged to reposition and ambulate to promote physiologic labor and . * Anticipate ? Delivery/Labor/Induction Plan Plan: expectant management OB Exam Physical Exam Vital signs: Pulse BP 101 H 149/63 H 01/29/24 02:26 01/29/24 02:26 Narrative: Vitals Reviewed Constitutional:? Alert and oriented x3 HEENT:? Normocephalic, atraumatic Neck:? Supple Lungs:? Clear to auscultation bilaterally Heart:? Regular rate and rhythm, no murmur, rub or gallop Abdomen:? Soft, nontender, and gravid. Vertex by Joe's, confirmed with cervical exam. Extremities:? No edema or erythema Cervix: 6 cm/90%/0 station/vertex per RN NST: 130 bpm/moderate variability/+accelerations/-decelerations/strong contractions Detailed Labor and Delivery Exam Patient Gravid: Yes
--- NOTE | 2024-01-29 02:49 | W.PM.OBVAGDE ---
OB Procedure Vag Delivery Mother Details Mother Details: Dori is a 38 year-old, 5, Para 2, admitted on 01/29/24 at 39 weeks 0 Days gestation in active labor. : 5 Para: 3 Weeks Gestation: 39.0 Admission Date: 01/29/24 Additional Details Amniotic Membrane Status: SROM Amniotic Membrane Rupture Date: 01/29/24 Amniotic Membrane Rupture Time: 02:13 Amniotic Membrane Fluid Description: Clear Analgesia/Anesthesia Type: None Waterbirth: Yes Pitcoin: Yes (for AMTSL) Intrapartal Events: None Labor Onset: 20:00 Complete: 02:10 Pushin:10 Heart: heart tones during second stage were intermittently monitored, FHR 132 no audible decelerations heard. Delivery Details Delivery Date: 01/29/24 Delivery Time: 02:14 Route of delivery: Infant Gender: Female Viability: Alive; Heart Rate Present Position at Delivery: OA Delivery Details: 38?y.o?at 39.0 weeks.? Dori was in active labor on admission per RN she was 6cm. Shortly after moving to the waterbirth room she had an urge to push. She was monitored for high blood pressure as her initial reading was 140/87 and follow up reading was ?163/85. An additional reading 15 minutes later was 137/89, she was then able to enter the tub for labor with clear instructions that if she had additional high readings we would have her not deliver in the tub. ? She became complete at 2009, assumed wit pushing.??She pushed in multiple positions effectively.? Spontaneous vaginal delivery at 0214 of?a viable? female .??Delivered in vertex OA position with one hand by the face.??Shoulders delivered easily.? Spontaneous cry noted.?? placed on maternal abdomen.??Cord?was clamped and cut after a 2 minute delay per pt preference.??Nose and mouth were bulb suctioned.? Shoulder dystocia: no? Nuchal cord: no? Meconium stained?fluid: no? Water : yes? ? ? 7 at 1 minute and 8 at 5 minutes.? Weight is pending. ? Placenta delivered spontaneously and?complete?at 0225 with a?3 vessel?cord.?? Bleeding controlled with fundal massage and?pitocin?for AMTSL.? ? Mother and were stable after delivery.? ? Lacerations:? none ? Bleeding?post delivery?was: minimal. ?The fundus was firm to palpation.? Blood loss: 100?mL.? Blood loss measurement type: QBL? ? ? Sponge,?lap?and needles counts are correct.? Mother and were stable after delivery.? 1 Minute Interval Total Score: 7 5 Minute Interval Total Score: 8 Additional Details Shoulder Dystocia: No Placenta Delivery Time: 02:25 Placental Delivery Description: Spontaneous Procedure Done: Global Blood Loss: 100 Laceration: None Blood Loss Measurement Type: QBL Bakri Used: No Sponge/Need Count Correct: Yes Cord Vessel Description: 3 Vessels Event Summary Status: Mother and were stable after delivery. Disposition: floor
[2024-01-29] MEDS: IBUPROFEN 600 MG TABLET PO ×4 (03:32→20:18)
[2024-01-29 06:44] LABS: Hematocrit 34.4 % (33.0-51.0); Hemoglobin* 11.9 gm/dL (12.0-16.0); Mean Corpuscular HGB Conc 35 gm/dL (32-36); Mean Corpuscular Hemoglobin 32 pg (26-34); Mean Corpuscular Volume 92 fL (80-100); Platelet Count* 189 K/uL (140-440); Red Blood Count 3.75 m/uL (4.00-5.20); White Blood Count* 13.16 K/uL (4.50-11.00)
[2024-01-29 06:45] LABS: Slide Review Reflex No
[2024-01-29] MEDS: ACETAMINOPHEN 500 MG TABLET 1000 MG PO ×2 (11:54→18:02)
[2024-01-30] MEDS: IBUPROFEN 600 MG TABLET PO (02:24)
[2024-01-30 02:30] VITALS: BP 146/84; PULSE 72; RESP 18; TEMP 36.6; O2SAT 100
[2024-01-30 03:00] VITALS: BP 125/84
[2024-01-30 08:02] VITALS: BP 130/81; PULSE 72; RESP 16; TEMP 36.5
[2024-01-30] MEDS: DOCUSATE SODIUM 100 MG CAPSULE PO (08:14)
[2024-01-30] MEDS: ACETAMINOPHEN 500 MG TABLET 1000 MG PO (08:14)
[2024-01-30 08:26] LABS: Hematocrit 36.9 % (33.0-51.0); Hemoglobin* 12.2 gm/dL (12.0-16.0); Mean Corpuscular HGB Conc 33 gm/dL (32-36); Mean Corpuscular Hemoglobin 31 pg (26-34); Mean Corpuscular Volume 93 fL (80-100); Platelet Count* 175 K/uL (140-440); Red Blood Count 3.96 m/uL (4.00-5.20); White Blood Count* 6.52 K/uL (4.50-11.00)
[2024-01-30 08:28] LABS: Slide Review Reflex No
--- NOTE | 2024-01-30 08:36 | PM.OBDSVD1 ---
DS: Providers Provider Date Seen: 01/30/24 Date of admission: 01/29/24 00:58 Primary care physician: Not a Local Provider Admitting Clinician: Charline Horn CNM Attending Physician on discharge: Charline Horn CNM Date of Discharge: 01/30/24 DS: Diagnosis Discharge Diagnosis (1) Gestational hypertension: Status: Acute (2) care and examination immediately after delivery: Status: Acute (3) Lactating mother: Status: Acute Exam Narrative: Exam Narrative: GENERAL APPEARANCE:? normal affect, alert, no distress MOOD:? appropriate CHEST:? clear to auscultation HEART:? regular rate and rhythm ABDOMEN:? soft, non-tender the uterine fundus is firm At Umbilicus, Midline and is appropriate for the stage of recovery. PERINEUM:? mild edema of the perineum, intact EXTREMITIES:? normal and no edema Const: Vital Signs, click to edit/add: Vital Signs - 24 hr 01/29/24 09:04 01/29/24 12:09 01/29/24 15:09 Temperature 97.7 F 97.8 F 98.4 F Pulse Rate [Blood Pressure Cuff] 84 79 73 Respiratory Rate 16 18 16 Blood Pressure [Le ft Arm] 135/78 Blood Pressure [Ri ght Arm] 116/73 114/73 Pulse Oximetry 97 99 Oxygen Delivery Me thod Room Air Room Air Room Air 01/29/24 16:03 01/29/24 20:24 01/30/24 02:30 Temperature 98.1 F 98.3 F 97.8 F Pulse Rate [Blood Pressure Cuff] 72 64 72 Respiratory Rate 16 16 18 Blood Pressure [Le ft Arm] 121/78 146/84 H Blood Pressure [Ri ght Arm] 116/70 Pulse Oximetry 97 96 100 Oxygen Delivery Me thod Room Air Room Air Room Air 01/30/24 03:00 01/30/24 08:02 Temperature 97.7 F Pulse Rate [Blood Pressure Cuff] 72 Respiratory Rate 16 Blood Pressure [Le ft Arm] Blood Pressure [Ri ght Arm] 125/84 130/81 Pulse Oximetry Oxygen Delivery Me thod Documenting provider has reviewed patient's vital signs: yes OB - DS: Summary Hospital Course Hospital Course: Dori is a 38 y.o. who was admitted to L & D for spontaneous labor. ?She had an uncomplicated NVD.?The patient feels well. ?The pain is well controlled with current medications. ?She has no new complaints. ?She is breast feeding and reports things are going well.? the patient has done well.? Vitals have been stable, although she has had two blood pressure readings more than 4 hours apart above 140/90, preeclampsia lab work was WNL today.. She has remained afebrile.? Has a good appetite, is tolerating a general diet. ?She is voiding without difficulty.? She is passing gas and has not had a bowel movement.? She is ambulating and denies any dizziness.? Has Small amount of rubra lochia. ?She is planning Mirena IUD for prevention. Peripartum Data Infant delivery method: Vaginal Laceration description: None complications: none Infant Gender: Female Discharge Plan: Home Status at Discharge Functional status at discharge: independent ambulation Overall status at discharge: patient is progressing back to baseline Time Spent with Patient Time attestation: Total time spent providing and/or coordinating discharge services: Time spent: Less than 30 minutes Discharge Plan Discharge Disposition: Home, Self-Care Date of Admission: 01/29/24 00:58 Attending Provider on Discharge: Charline Horn Primary Care Provider: Provider,Not a Local Condition: Stable Anticipated Discharge Date/Time: 01/30/24 11:11 Discharge Medications: New acetaminophen 500 mg Tablet 1,000 mg PO Q6H PRNQty: 0 0RF docusate sodium 100 mg Capsule 100 mg PO DAILY Qty: 90 2RF ibuprofen 600 mg Tablet 600 mg PO Q6H PRNQty: 60 0RF Continued magnesium 200 mg tablet 200 mg PO QDAY pantoprazole [Protonix] 20 mg tablet,delayed release (DR/EC) 20 mg PO QDAY Qty: 90 0RF acetaminophen 500 mg tablet 500 mg PO .PRN PRN Rx Instructions: NO MORE THAN 4000 MG/DAY ondansetron 8 mg tablet,disintegrating 8 mg PO Q12H PRN (Reason: nausea and vomiting) Qty: 60 2RF sumatriptan succinate 50 mg tablet 50 mg PO Q2-4H PRN (Reason: migraine headache) Qty: 10 0RF Rx Instructions: do not exceed 4 doses per 24 hrs metoclopramide HCl [Reglan] 10 mg tablet 10 mg PO Q6H PRN (Reason: nausea and vomiting) Qty: 180 1RF docusate sodium [Colace] 100 mg capsule 100 mg PO QDAY PRN 1 tab PO DAILY thiamine HCl (vitamin B1) 100 mg tablet 100 mg PO TID Qty: 90 3RF Rx Instructions: Take 3 times a day as you are able. Discharge Orders: Discharge Order (Routine); Ordered 01/30/24 Ordered By: Charline Horn Patient Education: OB Vaginal/Breast Feeding Additional Instructions: Check blood pressure two times a day. Follow up on Saturday, January, at [facility]. Clinic will contact you to set up the appointment time. Discharge instructions were reviewed with the patient including signs and symptoms of infection and home going medications Nothing vaginally for 6 weeks: no tampons or intercourse Off Work or School for 6 weeks Follow [facility] for a BP check?02/03/24 Call with BP greater than or equal to 160/110 2-week visit: discuss infant feeding concerns, review control options and screen for anxiety/depression. 6-week visit for an annual exam. consultation services are available to all mothers and babies for the first year after delivery.? To make an appointment, please call [phone]. Activity Level: Activity as Tolerated Discharge Diet: Regular Follow Up Appointments: Provider,Not a Local [Primary Care Provider] - [facility] [Provider Group] Forms: [employer] Info Instructions
[2024-01-30 08:53] LABS: Aspartate Amino Transferase* 35 U/L (12-35); Blood Urea Nitrogen* 7 mg/dL (5-24); Creatinine* 0.4 mg/dL (0.5-1.5); Est. Creatinine Clearance* 178.52; Estimated Glomerular Filt Rate 130 ml/min
[2024-01-30 09:10] LABS: Alanine Aminotransferase* 15 U/L (4-35)
[2024-01-30 10:26] LABS: Total Protein Urine 11 mg/dL
[2024-01-30 10:27] LABS: Creatinine Urine 152.1 mg/dL
[2024-01-31 01:13] LABS: Rapid Plasma Reagin (RPR) Non Reactive (Non Reactive)
== END 2024-01-30 12:20 | disposition home or self-care (01) | DRG 807 ==
LOC: OB 01:00
PROVIDERS: Admitting Provider Advanced Practice Midwife; Visit Provider Advanced Practice Midwife
DX: O26.893 Other specified pregnancy related conditions, third trimester (principal); Z67.11 Type A blood, Rh negative; O99.02 Anemia complicating childbirth; D64.9 Anemia, unspecified; O13.4 Gestational [pregnancy-induced] hypertension without significant proteinuria, complicating childbirth; Z37.0 Single live birth; Z3A.39 39 weeks gestation of pregnancy
CPT/HCPCS: 36415; 82565; 82570; 84156; 84450; 84460; 84520; 85027; 86592; G0463; A9270; J2590

== ENCOUNTER 2024-05-25 08:00 | Outpatient (RCR) | payer MEDICAID, SELFPAY | END 2024-09-22 23:59 | disposition home or self-care (01) | PROVIDERS: Visit Provider Advanced Practice Midwife | DX: R10.2 Pelvic and perineal pain (principal); Z51.89 Encounter for other specified aftercare | CPT/HCPCS: 97140; 97162; 97530 ==